=== PATIENT | male | born 1950 | race Caucasian/White ===

== ENCOUNTER 2022-11-21 03:30 | Inpatient (IN) ==
[2022-11-21] MEDS ORDERED: HYDROmorphone INJ 0.5 MG/0.5 ML SYR IV STA (04:19)
[2022-11-21] MEDS ORDERED: ONDANSETRON INJ 2 MG/ML 2 ML VIAL IV STA (04:19)
[2022-11-21] MEDS ORDERED: KETOROLAC 30 MG/ML VIAL IV ONE (04:19)
--- NOTE | 2022-11-21 04:27 | Emergency Department Note ---
Impression & Plan Bilateral pulmonary embolism Admit to the [facility] ED Provider Note NAME: LAWRENCE NAILS AGE: 72 SEX: M ARRIVES VIA: Walk-In INFORMANT: Patient and his ED PROVIDER(S): Renay Mcpherson DO CHIEF COMPLAINT: Left lower chest wall pain PLAN: Disposition: Admit to the [facility] Condition: Guarded MEDICAL DECISION MAKING: This is a 72-year-old male patient who presents to the emergency department with left sided lower rib pain for the past 3 days. The pain became much more severe and woke him from sleep tonight. Patient was treated with IV analgesia here in the emergency department. He did have a faint vesicular rash over the left lower rib cage which was possibly concerning for herpes zoster but he felt the pain was much deeper inside so he went for CT scan of the chest which revealed bilateral pulmonary emboli with a questionable lingular infarct. Patient was started on IV heparin. I discussed the case with the [facility] and they will evaluate for further management. Patient does have risk factors for pulmonary emboli including an extensive tobacco abuse history and previous cancer. Triage Nursing notes reviewed and agree with them. Additional history obtained from the patient's is at the bedside Prior medical records reviewed Vital Signs: reviewed and unremarkable Differential diagnosis: Pneumonia, pleurisy, rib fractures, herpes zoster ER treatment provided: IV Toradol IV Dilaudid IV Zofran IV heparin drip Diagnostics interpreted by me: ECG: Normal sinus rhythm at a rate of [address] segment elevation or signs of ischemia. There is no ectopy. Cardiac Monitoring: Normal sinus rhythm at 80 Laboratory studies: See below Imaging studies: As per radiology CT chest: See report HPI: 72/M arrives for evaluation of left-sided rib pain. Patient has been having discomfort in his left anterior chest wall over the past 3 days. He woke from sleep tonight with severe increase in his pain. Patient describes having a chronic cough from smoking. ROS: See above HPI for pertinent positives & negatives. A total of 10 systems reviewed and were otherwise negative. PAST MEDICAL HISTORY:See Below PAST SURGICAL HISTORY:See Below FAMILY HISTORY:See Below SOCIAL HISTORY:See Below HOME MEDICATIONS:See list ALLERGIES:None VITALS:See Below PHYSICAL EXAMINATION: HEENT: Head - normocephalic and atraumatic. Pupils are equal, round, and reactive to light. Extraocular eye muscles are intact, and sclera are anicteric. Nose - moist nasal mucosa without discharge. Mouth - moist buccal mucosa. Oropharynx is nonerythematous and there is no tonsillar exudate or edema noted. Neck: Supple; no cervical lymphadenopathy or JVD Heart: Regular rate and rhythm. There is a normal S1 and S2 with no murmurs, clicks, or gallops appreciated. Lungs: Clear to auscultation bilaterally with no wheezes, rales, or rhonchi. Abdomen: Soft, obvious anterior abdominal wall hernia that is easily reducible nondistended, with good bowel sounds. There are no palpable pulsatile masses or hepatosplenomegaly. There is no guarding, rigidity, or rebound noted. Extremities: No evidence of cyanosis, clubbing, or edema. There are easily palpable peripheral pulses. Skin: Patient does have tiny vesicular lesions noted over the left lower rib cage anteriorly. Rectal:Soft brown stool which was Hemoccult negative ED COURSE: Times/Reassessments: 340: Patient was evaluated in room A-3. A complete history and physical was performed. An IV lock was initiated and labs are drawn as above. The patient was medicated with IV Toradol, IV Dilaudid and IV Zofran. An order was placed for continuous cardiac monitoring. The patient was in a normal sinus rhythm at a rate of 80. A twelve-lead EKG was obtained as described above. He will go for CT scan of the chest. O2 saturations are stable. Patient's pain was adequately controlled. I reviewed the results of the labs and CT scan with the patient and his . He was started on IV heparin drip after a Rectal exam was performed. It was heme occult negative Renay Mcpherson DO Past Med/Surg History Medical History Barretts esophagus CAD (coronary artery disease) Degenerative disc disease Dyslipidemia GERD (gastroesophageal reflux disease) Hypertension Myocardial Infarction Nausea Osteoarthritis Right knee DJD Surgical History History of cardiac cath History of coronary artery bypass graft x 2 History of esophagogastroduodenoscopy (EGD) (~05/15/20) History of hand surgery History of heart artery stent History of lumbar discectomy History of lumbar surgery History of throat surgery History of tooth extraction History of wisdom tooth extraction Family History Mother Family history of esophageal cancer Other No family history of adverse response to anesthesia Social History Smoking Status: Current every day smoker Tobacco Type: Cigarettes Cigarettes Per Day: 7-8; Second Hand Exposure: No; Hx Alcohol Use: No Hx Substance Use: No Preferred Language: Setswana Communication Ability: Effective [employer] Required: No Beliefs That Will Affect Care: None Current Living Situation: Spouse Feels Safe at Home: Yes Assistive Devices: Cane and Glasses Allergies Allergies Allergy/AdvReac Type Severity Reaction Status Date / Time No Known Drug Allergies Allergy Verified 11/21/22 06:48 Home Meds Home Medications Medication Instructions Recorded Confirmed aspirin 81 mg tablet,delayed 81 mg PO QAM 05/08/20 11/21/22 release dexlansoprazole 60 mg 60 mg PO QAM 07/23/22 11/21/22 capsule,biphase delayed release (Dexilant) diphenhydramine 25 2 tab PO HS PRN Pain 07/23/22 11/21/22 mg-acetaminophen 500 mg tablet (Tylenol PM Extra Strength) hydrochlorothiazide 25 mg tablet 25 mg PO QAM PRN Edema 07/23/22 11/21/22 rosuvastatin 20 mg tablet 20 mg PO HS 07/23/22 11/21/22 famotidine 40 mg tablet 40 mg PO BID 11/21/22 11/21/22 Previous Rx's Medication Instructions Recorded lisinopril 40 mg tablet 40 mg PO QAM #90 tabs 05/21/22 metoprolol succinate 50 mg 50 mg PO BID #180 tabs 05/21/22 tablet,extended release 24 hr (Toprol XL) apixaban 5 mg (74 tabs) tablets in 5 mg PO BID PE #74 ea 11/21/22 a dose pack (Eliquis) oxycodone-acetaminophen 5 mg-325 1 tab PO Q6H PRN pain #14 tabs 11/21/22 mg tablet (Percocet) Results & Data (ED) Vital Signs Vital Signs - 24 hr 11/21/22 03:34 11/21/22 03:30 11/21/22 04:19 Temperature 36.5 C Temperature Source Temporal Artery Scan Pulse Rate 80 65 Pulse Rate [Apical] Pulse Rate from SpO2 Sensor Respiratory Rate 20 20 Respiratory Effort / Characteristics Respiratory Depth Normal Blood Pressure 136/61 Blood Pressure [Right Arm] Blood Pressure Mean 86 Blood Pressure Mean [Right Arm] Pulse Oximetry 95 94 Oxygen Delivery Method Room Air Room Air Room Air Sepsis Recent Fever Within 48 Hours No Sepsis New/Unexplained Change in Mental Status N/A Sepsis Action Taken by Nursing No Action Required 11/21/22 05:30 11/21/22 05:00 11/21/22 05:46 Temperature Temperature Source Pulse Rate 60 63 Pulse Rate [Apical] 52 L Pulse Rate from SpO2 Sensor 61 65 Respiratory Rate 16 14 13 Respiratory Effort / Characteristics Non-Labored Spontaneous Respiratory Depth Normal Blood Pressure 87/66 L Blood Pressure [Right Arm] 98/51 L Blood Pressure Mean 73 Blood Pressure Mean [Right Arm] 66 Pulse Oximetry 95 94 96 Oxygen Delivery Method Room Air Sepsis Recent Fever Within 48 Hours Sepsis New/Unexplained Change in Mental Status Sepsis Action Taken by Nursing 11/21/22 06:00 11/21/22 06:30 11/21/22 06:32 Temperature Temperature Source Pulse Rate 59 L 64 54 L Pulse Rate [Apical] Pulse Rate from SpO2 Sensor 57 L 64 55 L Respiratory Rate 12 16 11 L Respiratory Effort / Characteristics Respiratory Depth Blood Pressure 104/49 L Blood Pressure [Right Arm] Blood Pressure Mean 67 Blood Pressure Mean [Right Arm] Pulse Oximetry 91 88 L 92 Oxygen Delivery Method Sepsis Recent Fever Within 48 Hours Sepsis New/Unexplained Change in Mental Status Sepsis Action Taken by Nursing 11/21/22 06:51 11/21/22 07:00 11/21/22 07:30 Temperature Temperature Source Pulse Rate 49 L 45 L Pulse Rate [Apical] Pulse Rate from SpO2 Sensor 45 L 46 L Respiratory Rate 18 11 L Respiratory Effort / Characteristics Respiratory Depth Blood Pressure 110/61 Blood Pressure [Right Arm] Blood Pressure Mean 77 Blood Pressure Mean [Right Arm] Pulse Oximetry 99 97 Oxygen Delivery Method Sepsis Recent Fever Within 48 Hours Sepsis New/Unexplained Change in Mental Status Sepsis Action Taken by Nursing 11/21/22 08:00 11/21/22 08:00 11/21/22 08:02 Temperature Temperature Source Pulse Rate 82 56 L Pulse Rate [Apical] Pulse Rate from SpO2 Sensor Respiratory Rate 18 17 Respiratory Effort / Characteristics Respiratory Depth Blood Pressure 126/48 L Blood Pressure [Right Arm] Blood Pressure Mean 74 Blood Pressure Mean [Right Arm] Pulse Oximetry Oxygen Delivery Method Sepsis Recent Fever Within 48 Hours Sepsis New/Unexplained Change in Mental Status Sepsis Action Taken by Nursing 11/21/22 08:02 Temperature Temperature Source Pulse Rate Pulse Rate [Apical] Pulse Rate from SpO2 Sensor Respiratory Rate Respiratory Effort / Characteristics Respiratory Depth Blood Pressure 142/55 H Blood Pressure [Right Arm] Blood Pressure Mean 84 Blood Pressure Mean [Right Arm] Pulse Oximetry Oxygen Delivery Method Sepsis Recent Fever Within 48 Hours Sepsis New/Unexplained Change in Mental Status Sepsis Action Taken by Nursing Laboratory Data Result diagrams: 11/21/22 04:26 11/21/22 04:26 Lab Results 11/21/22 11/21/22 11/21/22 Range/Units 04:26 04:26 04:26 WBC 9.53 (4.8-10.8) K/ul RBC 4.60 L (4.63-6.08) M/uL Hgb 15.0 (14.0-18.0) g/dl Hct 43.5 (40.1-51.0) % MCV 94.6 (80.0-100.0) fL MCH 32.6 (25.0-34.0) pg MCHC 34.5 (32.0-36.0) g/dL RDW Std Deviation 44.7 (36.4-46.3) fL RDW Coeff of Tali 12.9 (11.5-14.5) % Plt Count 206 (130-400) K/uL MPV 11.1 (9.4-12.4) fL Immature Gran % (Auto) 0.3 % Neut % (Auto) 64.4 % Lymph % (Auto) 23.5 % [place] % (Auto) 9.7 % Eos % (Auto) 1.9 % Baso % (Auto) 0.2 % Neut # (Auto) 6.14 (1.4-6.5) K/uL Lymph # (Auto) 2.24 (1.2-3.4) K/uL [place] # (Auto) 0.92 H (0.24-0.82) K/uL Eos # (Auto) 0.18 (0-0.50) K/uL Baso # (Auto) 0.02 (0-0.2) K/uL Immature Gran # (Auto) 0.03 H (0.00-0.02) K/uL PT (9.0-12.0) Seconds INR (0.9-1.1) APTT (21.0-31.0) Seconds PTT Ratio Sodium Cancelled 138 Potassium Cancelled 5.5 H Chloride Cancelled 104 Carbon Dioxide Cancelled 24 Anion Gap Cancelled 10 BUN Cancelled 35 H Creatinine Cancelled 1.13 Est Cr Clr Drug Dosing Cancelled 57.2 Est GFR ( Amer) Cancelled 74.8 Est GFR (Non-Af Amer) Cancelled 64.6 BUN/Creatinine Ratio Cancelled 31.0 H Glucose Cancelled 113 H Calcium Cancelled 10.4 H Total Bilirubin Cancelled 0.6 AST Cancelled 17 ALT Cancelled 12 Alkaline Phosphatase Cancelled 71 Total Protein Cancelled 7.8 Albumin Cancelled 4.4 Globulin Cancelled 3.4 Albumin/Globulin Ratio Cancelled 1.3 Lipase Cancelled 19 SARS-CoV-2, RNA, NAAT (NEGATIVE) 11/21/22 11/21/22 11/21/22 Range/Units 04:26 04:26 07:55 WBC (4.8-10.8) K/ul RBC (4.63-6.08) M/uL Hgb (14.0-18.0) g/dl Hct (40.1-51.0) % MCV (80.0-100.0) fL MCH (25.0-34.0) pg MCHC (32.0-36.0) g/dL RDW Std Deviation (36.4-46.3) fL RDW Coeff of Tali (11.5-14.5) % Plt Count (130-400) K/uL MPV (9.4-12.4) fL Immature Gran % (Auto) % Neut % (Auto) % Lymph % (Auto) % [place] % (Auto) % Eos % (Auto) % Baso % (Auto) % Neut # (Auto) (1.4-6.5) K/uL Lymph # (Auto) (1.2-3.4) K/uL [place] # (Auto) (0.24-0.82) K/uL Eos # (Auto) (0-0.50) K/uL Baso # (Auto) (0-0.2) K/uL Immature Gran # (Auto) (0.00-0.02) K/uL PT 11.5 (9.0-12.0) Seconds INR 1.1 (0.9-1.1) APTT 27.1 (21.0-31.0) Seconds PTT Ratio 1.0 Sodium Potassium Chloride Carbon Dioxide Anion Gap BUN Creatinine Est Cr Clr Drug Dosing Est GFR ( Amer) Est GFR (Non-Af Amer) BUN/Creatinine Ratio Glucose Calcium Total Bilirubin AST ALT Alkaline Phosphatase Total Protein Albumin Globulin Albumin/Globulin Ratio Lipase SARS-CoV-2, RNA, NAAT NEGATIVE (NEGATIVE) Administered Medications Discontinued Medications Aspirin (Aspirin 81 Mg Ectab) 81 mg PO QAM [facility] Stop: 12/21/22 11:14 Last Admin: 11/21/22 11:54 Dose: 81 mg Documented By: GRZEGORZ Famotidine (Famotidine 40 Mg Tablet) 40 mg PO BID [facility] Stop: 12/21/22 11:14 Last Admin: 11/21/22 11:54 Dose: 40 mg Documented By: GRZEGORZ Heparin Sodium/Dextrose (Heparin Iv Adult Wt-Based Standard *No* Bolus Protocol) 1 each IV ONE ONE; Protocol Stop: 11/21/22 08:02 Last Admin: 11/21/22 08:40 Dose: 1 each Documented By: LUCY Hydromorphone HCl (Hydromorphone Inj 0.5 Mg/0.5 Ml Syr) 0.5 mg IV NOW STA Stop: 11/21/22 04:20 Last Admin: 11/21/22 04:31 Dose: 0.5 mg Documented By: ZEYAD Sodium Chloride (Nss) 500 mls @ 999 mls/hr IV .Q31M ONE Stop: 11/21/22 07:00 Last Infusion: 11/21/22 07:46 Dose: 0 mls/hr Documented By: Admin: 11/21/22 06:47 Dose: 999 mls/hr Documented By: ZEYAD Heparin Sodium/Dextrose (Heparin Sodium/Dextrose) 25,000 units in 500 mls @ 26 mls/hr IV .[id number] [facility]; Protocol Stop: 12/21/22 08:29 Last Titration: 11/21/22 16:42 Dose: 0 units/hr, 0 mls/hr Documented By: GRZEGORZ Co-signed By: [id number] Admin: 11/21/22 08:40 Dose: 1,300 units/hr, 26 mls/hr Documented By: LUCY Co-signed By: ZAHRAA Ioversol (Optiray 350 100ml) 86 ml IV ONCE ONE Stop: 11/21/22 06:44 Last Admin: 11/21/22 06:43 Dose: 86 ml Documented By: MAGDALENO Ketorolac Tromethamine (Ketorolac 30 Mg/Ml Vial) 30 mg IV NOW ONE Stop: 11/21/22 04:20 Last Admin: 11/21/22 04:31 Dose: 30 mg Documented By: ZYEAD Metoprolol Succinate (Metoprolol Succ 50mg Ext Rel Tab) 50 mg PO BID [facility] Stop: 12/21/22 11:14 Last Admin: 11/21/22 11:54 Dose: 50 mg Documented By: GRZEGORZ Ondansetron HCl (Ondansetron Inj 2 Mg/Ml 2 Ml Vial) 4 mg IV NOW STA Stop: 11/21/22 04:20 Last Admin: 11/21/22 04:31 Dose: 4 mg Documented By: ZEYAD Pantoprazole Sodium (Pantoprazole 40 Mg Tab) 40 mg PO QAM [facility]; Protocol Stop: 12/21/22 11:14 Last Admin: 11/21/22 11:54 Dose: 40 mg Documented By: GRZEGORZ Imaging Data Radiologist's Impression: Chest CT 11/21/22 04:19 CT OF THE CHEST WITH IV CONTRAST CLINICAL HISTORY: Left lower anterior chest wall pain. No known injury. COMPARISON STUDY: Chest radiograph November 21, [address] January 26 11. TECHNIQUE: Following IV administration of 86 mL of Optiray, helical axial images of the chest were obtained. Sagittal and coronal reconstructions were viewed as well as maximal intensity projections on an independent 3-D workstation. Automated exposure control was utilized for the study. A dose lowering technique was utilized adhering to the principles of ALARA. CT DOSE: 254.37 mGy.cm FINDINGS: Multiple acute appearing bilateral pulmonary emboli are noted. These include emboli within the distal left pulmonary artery as well as numerous lobar and segmental pulmonary emboli. No CT evidence for right heart strain. There are median sternotomy wires and postoperative findings from bypass grafting. There is no pericardial effusion. Mild airspace opacity within the lingula is present. There is a trace left pleural effusion. No pneumothorax. Lungs are suboptimally assessed due to respiratory motion. Bulla/cysts within the lungs are again noted. Numerous old bilateral rib fractures are noted. There are no acute rib fractures. Old thoracic spine and sternal fractures are present. Right renal cysts are incidentally noted. IMPRESSION: 1. Numerous bilateral pulmonary emboli, as described above. Findings discussed with Dr. Mcpherson at time of dictation. 2. Mild lingular airspace opacity. Given pulmonary emboli, this favors a pulmonary infarct. Trace left pleural effusion. 3. No acute rib fractures. Multiple old bilateral rib fractures. ACT 112: Negative or not required by law. Electronically signed by: Tomi Wall M.D. 11/21/2022 7:47 AM Chest X-Ray 11/21/22 04:19 XR chest 1V portable CLINICAL HISTORY: Chest pain, nonspecific COMPARISON STUDY: Chest radiograph June 08, 2022. FINDINGS: Median sternotomy wires are noted. Lung volumes are normal. Lungs are clear. There is no pneumothorax or pleural effusion. Cardiac size is normal. Mediastinal contours are normal. There is no evidence for pulmonary edema. S evere osteoarthritis of the right glenohumeral joint. IMPRESSION: No acute cardiopulmonary findings. ACT 112: Negative or not required by law. Electronically signed by: Tomi Wall M.D. 11/21/2022 7:58 AM Discharge Plan Visit Data Chief Complaint: Pain (Generalized) Stated Complaint: L SIDE PAIN ED Provider: Renay Mcpherson Discharge Problem: Bilateral pulmonary embolism Patient Disposition: Admitted As Inpatient Discharge Instructions Interventions: ED Discharge Assessment Last Done: 11/21/22 10:31
[2022-11-21 04:47] LABS: Basophils # (auto) 0.02 K/uL (0-0.2); Basophils % (auto) 0.2 %; Eosinophils # (auto) 0.18 K/uL (0-0.50); Eosinophils % (auto) 1.9 %; Hematocrit (blood only) 43.5 % (40.1-51.0); Immature Granulocytes # (auto) 0.03 K/uL (0.00-0.02); Immature Granulocytes % (auto) 0.3 %; Lymphocytes # (auto) 2.24 K/uL (1.2-3.4); Lymphocytes % (auto) 23.5 %; Mean Corpuscular Hemoglobin 32.6 pg (25.0-34.0); Mean Corpuscular Hgb Conc 34.5 g/dL (32.0-36.0); Mean Corpuscular Volume 94.6 fL (80.0-100.0); Mean Platelet Volume 11.1 fL (9.4-12.4); Monocytes # (auto) 0.92 K/uL (0.24-0.82); Monocytes % (auto) 9.7 %; Neutrophils # (auto) 6.14 K/uL (1.4-6.5); Neutrophils % (auto) 64.4 %; Platelet Count 206 K/uL (130-400); RDW Coefficient of Variation 12.9 % (11.5-14.5); RDW Standard Deviation 44.7 fL (36.4-46.3); White Blood Count 9.53 K/ul (4.8-10.8)
[2022-11-21 06:23] LABS: Albumin Globulin Ratio 1.3 (0.9-2); Albumin Level 4.4 gm/dl (3.4-5.0); Bilirubin,Total 0.6 mg/dl (0.2-1.0); Calcium 10.4 mg/dl (8.5-10.1); Creatinine Clr Calc Pharmacy 57.2 ml/min; Est GFR (African American) 74.8 ml/min; Est GFR (Non-African American) 64.6 ml/min; Globulin 3.4 gm/dl (2.5-4.0); Potassium 5.5 mmol/L (3.5-5.1); Total Protein 7.8 gm/dl (6.0-8.3)
[2022-11-21] MEDS ORDERED: SODIUM CHLORIDE 0.9% 500 ML IV ONE (06:30)
[2022-11-21] MEDS ORDERED: OPTIRAY 350 100ml IV ONE (06:43)
--- NOTE | 2022-11-21 07:50 | CT Scan Report ---
CT OF THE CHEST WITH IV CONTRAST CLINICAL HISTORY: Left lower anterior chest wall pain. No known injury. COMPARISON STUDY: Chest radiograph November 21, [address] January 26, 2011. TECHNIQUE: Following IV administration of 86 mL of Optiray, helical axial images of the chest were o btained. Sagittal and coronal reconstructions were viewed as well as maximal intensity projections o n an independent 3-D workstation. Automated exposure control was utilized for the study. A dose low ering technique was utilized adhering to the principles of ALARA. CT DOSE: 254.37 mGy.cm FINDINGS: Multiple acute appearing bilateral pulmonary emboli are noted. These include emboli within the distal left pulmonary artery as well as numerous lobar and segmental pulmonary emboli. No CT evid ence for right heart strain. There are median sternotomy wires and postoperative findings from bypass grafting. There is no pericardial effusion. Mild airspace opacity within the lingula is present. The re is a trace left pleural effusion. No pneumothorax. Lungs are suboptimally assessed due to respirat ory motion. Bulla/cysts within the lungs are again noted. Numerous old bilateral rib fractures are no salud. There are no acute rib fractures. Old thoracic spine and sternal fractures are present. Right re nal cysts are incidentally noted. IMPRESSION: 1. Numerous bilateral pulmonary emboli, as described above. Findings discussed with Dr. Mcpherson at time of dictation. 2. Mild lingular airspace opacity. Given pulmonary emboli, this favors a pulmonary infarct. Trace lef t pleural effusion. 3. No acute rib fractures. Multiple old bilateral rib fractures. ACT 112: Negative or not required by law. Electronically signed by: Tomi Wall M.D. 11/21/2022 7:47 AM
--- NOTE | 2022-11-21 08:00 | XRay Report ---
XR chest 1V portable CLINICAL HISTORY: Chest pain, nonspecific COMPARISON STUDY: Chest radiograph June 08, 2022. FINDINGS: Median sternotomy wires are noted. Lung volumes are normal. Lungs are clear. There is no pn eumothorax or pleural effusion. Cardiac size is normal. Mediastinal contours are normal. There is no evidence for pulmonary edema. Severe osteoarthritis of the right glenohumeral joint. IMPRESSION: No acute cardiopulmonary findings. ACT 112: Negative or not required by law. Electronically signed by: Tomi Wall M.D. 11/21/2022 7:58 AM
[2022-11-21] MEDS ORDERED: Heparin IV Adult Wt-Based Standard *NO* Bolus Protocol IV ONE (08:01)
[2022-11-21 08:23] LABS: INR 1.1 (0.9-1.1); Prothrombin Time 11.5 Seconds (9.0-12.0)
[2022-11-21] MEDS ORDERED: HEPARIN SODIUM/DEXTROSE 25,000 UNITS/500 ML BAG IV SCH (08:30)
[2022-11-21 08:54] LABS: Partial Thromboplastin Time 27.1 Seconds (21.0-31.0)
[2022-11-21] MEDS ORDERED: MAGNESIUM HYDROXIDE SUSP 30 ML UDC PO PRN (10:47)
[2022-11-21] MEDS ORDERED: ALUMINUM/MAGNESIUM SUSP 30 ML UDC PO PRN (10:47)
[2022-11-21] MEDS ORDERED: POLYETHYLENE (MIRALAX) 17 GM PACK PO PRN (10:47)
[2022-11-21] MEDS ORDERED: ZOLPIDEM TARTRATE 5 MG TAB PO PRN (10:47)
[2022-11-21] MEDS ORDERED: NON-FORMULARY MEDICATION (Diphenhydramine-Acetaminophen [Tylenol Pm Extra Strength] 25-500 PO PRN (10:47)
[2022-11-21] MEDS ORDERED: ONDANSETRON INJ 2 MG/ML 2 ML VIAL IV PRN (10:47)
[2022-11-21] MEDS ORDERED: ACETAMINOPHEN 325 MG TAB PO PRN (10:47)
[2022-11-21] MEDS ORDERED: ASPIRIN 81 MG ECTAB PO SCH (11:15)
[2022-11-21] MEDS ORDERED: FAMOTIDINE 40 MG TABLET PO SCH (11:15)
[2022-11-21] MEDS ORDERED: PANTOprazole 40 MG TAB PO SCH (11:15)
[2022-11-21] MEDS ORDERED: METOPROLOL SUCC 50MG EXT REL TAB PO SCH (11:15)
--- NOTE | 2022-11-21 14:51 | Electrocardiogram Report ---
Test Reason : Blood Pressure : / mmHG Vent. Rate : 067 BPM Atrial Rate : 067 BPM P-R Int : 160 ms QRS Dur : 070 ms QT Int : 382 ms P-R-T Axes : 041 065 070 degrees QTc Int : 403 ms Poor data quality, interpretation may be adversely affected Normal sinus rhythm with sinus arrhythmia Normal ECG When compared with ECG of 08-JUN-2022 09:56, Borderline criteria for Inferior infarct are no longer Present Confirmed by Ben Harrington ([id number]) on 11/21/2022 2:50:53 PM Referred By: REFERRED SELF Confirmed By:Ben Harrington
[2022-11-21 15:16] LABS: Partial Thromboplastin Ratio 2.9
[2022-11-21 15:47] LABS: Partial Thromboplastin Time 80.4 Seconds (21.0-31.0)
--- NOTE | 2022-11-21 16:18 | History & Physical Report ---
Date of Service November 21, 2022 Assessment & Plan (1) Pulmonary embolism: Plan: The patient presented to hospital with pleuritic chest pain and multifocal bilateral segmental pulmonary embolism with no evidence of cardiopulmonary compromise, currently patient is on room air, his sats is 95% even with ambulation despite history of COPD, patient was started on heparin drip at the ER, continue heparin drip for now, monitor patient's vitals and respiratory status for the next 12 hours if patient is medically stable patient can be discharged on oral anticoagulation, patient has multiple risk factors for pulmonary embolism including history of throat cancer, active smoker, sedentary lifestyle, obesity, age, history of precancerous stomach lesion, at least patient needs to be on anticoagulation for 4 to 6 months and possibly indefinitely, I advised the patient to follow-up with PCP for the length of treatment to be followed by her oncologist, for hypercoagulable work-up The patient pleuritic chest pain which failed responded to treatment currently patient is chest pain-free (2) COPD (chronic obstructive pulmonary disease): Plan: No wheezing on exam, he is maintaining sats above 90% in even ambulatory position, (3) Hypertension: Plan: Currently mildly on the low side, continue home regiment good control (4) CAD (coronary artery disease): Plan: Continue aspirin continue metoprolol no chest pain (5) Dyslipidemia: Plan: Continue statin Admission and Anticipated Discharge Date Admission Date: November 21, 2022 History of Present Illness Chief Complaint: Left lateral chest pain Primary Care Provider: MARLENA Christopher The patient is a 72-year-old male with a past medical history significant for throat cancer, precancerous lesion in the lung, active smoker since the age of 12 he still smokes about 2 cigarettes a day, obesity, coronary artery disease status post CABG, hypertension, history of GERD with Lopez esophagus, osteoarthritis who presented to hospital with 3-day history of worsening left lateral chest pain, trigger but the inspiration and cough to the point they interfere with his sleep. Patient did not have any nausea or vomiting diarrhea or chills or fever. Initial work-up at the ER included CT angio of the chest showed multifocal bilateral pulmonary embolism however in segmental branches. Patient is hemodynamically stable, currently he is not hypoxic, currently patient on room air, patient on heparin drip and pain is adequately addressed at this point and patient has pain-free it. Allergies Allergy/AdvReac Type Severity Reaction Status Date / Time No Known Drug Allergies Allergy Verified 11/21/22 06:48 Home Medications Medication Instructions Recorded Confirmed Type aspirin 81 mg tablet,delayed 81 mg PO QAM 05/08/20 11/21/22 History release lisinopril 40 mg tablet 40 mg PO QAM #90 tabs 05/21/22 11/21/22 Rx metoprolol succinate 50 mg 50 mg PO BID #180 tabs 05/21/22 11/21/22 Rx tablet,extended release 24 hr (Toprol XL) dexlansoprazole 60 mg 60 mg PO QAM 07/23/22 11/21/22 History capsule,biphase delayed release (Dexilant) diphenhydramine 25 2 tab PO HS PRN Pain 07/23/22 11/21/22 History mg-acetaminophen 500 mg tablet (Tylenol PM Extra Strength) hydrochlorothiazide 25 mg tablet 25 mg PO QAM PRN Edema 07/23/22 11/21/22 History rosuvastatin 20 mg tablet 20 mg PO HS 07/23/22 11/21/22 History apixaban 5 mg (74 tabs) tablets in 5 mg PO BID #74 ea 11/21/22 Rx a dose pack (Eliquis) famotidine 40 mg tablet 40 mg PO BID 11/21/22 11/21/22 History oxycodone-acetaminophen 5 mg-325 1 tab PO Q6H PRN pain #14 tabs 11/21/22 Rx mg tablet (Percocet) Past Med/Surg History Medical History Barretts esophagus CAD (coronary artery disease) Degenerative disc disease Dyslipidemia GERD (gastroesophageal reflux disease) Hypertension Myocardial Infarction Nausea Osteoarthritis Right knee DJD Surgical History History of cardiac cath History of coronary artery bypass graft x 2 History of esophagogastroduodenoscopy (EGD) (~05/15/20) History of hand surgery History of heart artery stent History of lumbar discectomy History of lumbar surgery History of throat surgery History of tooth extraction History of wisdom tooth extraction Family History Mother Family history of esophageal cancer Other No family history of adverse response to anesthesia Social History Smoking Status: Current every day smoker Tobacco Type: Cigarettes Cigarettes Per Day: 7-8; Second Hand Exposure: No; Hx Alcohol Use: No Hx Substance Use: No Preferred Language: Lebanese 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: No Beliefs That Will Affect Care: None Current Living Situation: Spouse Other Information That Helps Us Care for You: No Feels Safe at Home: Yes Safety Concerns: Feels Safe At This Time Assistive Devices: Cane and Glasses Review of Systems Review of Systems: General: No chills fever or weakness Neck: No pain or tenderness CVS: Positive for left lateral chest pain, no shortness of breath, no cough, no phlegm Lungs: No wheezing, no cough Abdomen: No nausea vomiting diarrhea or pain Extremities: No edema lower leg no tenderness Physical Exam Physical Exam: General: Alert oriented x3 Neck: Supple nontender CVS: Regular rhythm and rhythm no murmur or gallop no regurgitation Lungs: Clear to auscultation no wheezing no chest wall deformity Abdomen: Soft bowel sounds active no palpable organomegaly Extremities: No edema no tenderness good peripheral pulses Results & Data Results & Data ([facility]) Vital Signs (Past 12 Hours) Vital Signs Temp Pulse Pulse Pulse Pulse Pulse Resp 11/21/22 15:40 36.5 C 58 L 18 11/21/22 15:08 71 68 56 L 11/21/22 12:12 36.6 C 57 L 16 11/21/22 10:45 11/21/22 10:32 50 L 16 11/21/22 10:31 11/21/22 10:00 54 L 9 L 11/21/22 10:00 11/21/22 09:30 49 L 16 11/21/22 09:30 11/21/22 09:00 48 L 13 11/21/22 09:00 11/21/22 08:47 11/21/22 08:47 58 L 16 11/21/22 08:30 48 L 14 11/21/22 08:30 11/21/22 08:02 11/21/22 08:02 56 L 17 11/21/22 08:00 82 18 11/21/22 08:00 11/21/22 10:16 36.5 C 57 L 20 11/21/22 07:30 45 L 11 L 11/21/22 07:00 49 L 18 11/21/22 06:51 11/21/22 06:32 54 L 11 L 11/21/22 06:30 64 16 11/21/22 06:00 59 L 12 11/21/22 05:46 63 13 11/21/22 05:00 60 14 11/21/22 05:30 52 L 16 11/21/22 04:19 65 20 Resp Resp Resp BP BP Pulse Ox Pulse Ox 11/21/22 15:40 111/48 L 97 11/21/22 15:08 18 16 16 97 11/21/22 12:12 119/68 93 11/21/22 10:45 11/21/22 10:32 122/63 95 11/21/22 10:31 11/21/22 10:00 11/21/22 10:00 122/63 11/21/22 09:30 11/21/22 09:30 100/62 11/21/22 09:00 11/21/22 09:00 120/55 L 11/21/22 08:47 136/60 11/21/22 08:47 11/21/22 08:30 99 11/21/22 08:30 142/50 H 11/21/22 08:02 142/55 H 11/21/22 08:02 11/21/22 08:00 11/21/22 08:00 126/48 L 11/21/22 10:16 141/58 H 96 11/21/22 07:30 97 11/21/22 07:00 99 11/21/22 06:51 110/61 11/21/22 06:32 92 11/21/22 06:30 88 L 11/21/22 06:00 104/49 L 91 11/21/22 05:46 87/66 L 96 11/21/22 05:00 94 11/21/22 05:30 98/51 L 95 11/21/22 04:19 94 Pulse Ox Pulse Ox O2 Del Method 11/21/22 15:40 Room Air 11/21/22 15:08 97 98 11/21/22 12:12 Room Air 11/21/22 10:45 Room Air 11/21/22 10:32 Room Air 11/21/22 10:31 Room Air 11/21/22 10:00 11/21/22 10:00 11/21/22 09:30 11/21/22 09:30 11/21/22 09:00 11/21/22 09:00 11/21/22 08:47 11/21/22 08:47 11/21/22 08:30 11/21/22 08:30 11/21/22 08:02 11/21/22 08:02 11/21/22 08:00 11/21/22 08:00 11/21/22 10:16 Room Air 11/21/22 07:30 11/21/22 07:00 11/21/22 06:51 11/21/22 06:32 11/21/22 06:30 11/21/22 06:00 11/21/22 05:46 11/21/22 05:00 11/21/22 05:30 Room Air 11/21/22 04:19 Room Air Code Status & VTE Plan Code Status Full code VTE Prophylaxis Plan VTE Prophylaxis will be ordered: Yes PG Care Time/CCT Total # of Minutes Spent Total Time Spent with Patient: Total time spent is greater than 50% in coordination of care (as documented) at patient's floor/unit and/or counseling patient: Coding Level of Care Code INT OBSERVATION CARE 50M LVL 2 Diagnoses Pulmonary embolism I26.99 COPD (chronic obstructive pulmonary disease) J44.9 Hypertension I10 CAD (coronary artery disease) I25.10 Dyslipidemia E78.5
--- NOTE | 2022-11-21 16:53 | Discharge Summary ---
Date of Service November 21, 2022 Admission HPI Per Admitting Provider The patient is a 72-year-old male with a past medical history significant for throat cancer, precancerous lesion in the lung, active smoker since the age of 12 he still smokes about 2 cigarettes a day, obesity, coronary artery disease status post CABG, hypertension, history of GERD with Lopez esophagus, osteoarthritis who presented to hospital with 3-day history of worsening left lateral chest pain, trigger but the inspiration and cough to the point they interfere with his sleep. Patient did not have any nausea or vomiting diarrhea or chills or fever. Initial work-up at the ER included CT angio of the chest showed multifocal bilateral pulmonary embolism however in segmental branches. Patient is hemodynamically stable, currently he is not hypoxic, currently patient on room air, patient on heparin drip and pain is adequately addressed at this point and patient has pain-free it. Principal Diagnosis Segmental and subsegmental bilateral multifocal pulmonary embolism in a high risk patient with no evidence of cardiopulmonary compromise but with pleuritic chest Discharge Exam General: Alert oriented x3 Neck: Supple nontender CVS: Regular rhythm and rhythm no murmur or gallop no regurgitation Lungs: Clear to auscultation no wheezing no chest wall deformity Abdomen: Soft bowel sounds active no palpable organomegaly Extremities: No edema no tenderness good peripheral pulses Discharge Data Allergies Allergy/AdvReac Type Severity Reaction Status Date / Time No Known Drug Allergies Allergy Verified 11/21/22 06:48 Consultations 11/21/22 08:04 ED Decision to Admit Stat Ordered Studies 11/21/22 04:19 CT chest diagnostic w con Urgent Hospital Course (1) Pulmonary embolism: The patient presented to hospital with pleuritic chest pain and multifocal bilateral segmental pulmonary embolism with no evidence of cardiopulmonary co mpromise, currently patient is on room air, his sats is 95% even with ambulation despite history of COPD, patient was started on heparin drip at the ER, monitored the patient's vitals and respiratory status for the next 12 hours the patient is medically stable patient and can be discharged on oral anticoagulation, patient has multiple risk factors for pulmonary embolism including history of throat cancer, active smoker, sedentary lifestyle, obesity, age, history of precancerous stomach lesion, at least patient needs to be on anticoagulation for 4 to 6 months and possibly indefinitely, I advised the patient to follow-up with PCP for the length of treatment to be followed by her oncologist, for hypercoagulable work-up. She was discharged on apixaban (2) COPD (chronic obstructive pulmonary disease): No wheezing on exam, he is maintaining sats above 90% in even ambulatory position, (3) Hypertension: Currently mildly on the low side, continue home regiment good control (4) CAD (coronary artery disease): Continue aspirin continue metoprolol no chest pain (5) Dyslipidemia: Continue statin Total Time Total Time Spent Total Time Spent (In Minutes): 35 Discharge Plan Discharge Items Patient Disposition: Home - Self-Care Reason For Visit: PE Discharge Diagnosis: Pulmonary embolism Activity: Resume your previous activity Lifting: Gradually increase as tolerated Bathing: No limitations Sexual Activity: When tolerated Exercise/Sports: Gradually increase as tolerated Driving/Machine Use: No limitations Weightbearing: Full weightbearing Non-emergency contact: Primary Care Provider and Oncologist Call non-emergency contact if: you have any medication questions and your sy mptoms worsen Follow-up/Referrals: Alisha Carbone CRNP [Primary Care Provider] - Diet: Heart Healthy Addtl Attending Provider Instructions: You need to take the blood thinner (apixaban) at least for 4 to 6 months, please consult your primary care doctor for further work-up or ask your primary doctor to refer you to phys assistant/oncologist to determine the length of treatment that you require which could be indefinite due to multiple risk factors that you have including smoking, having history of cancer, sedentary lifestyle age and obesity Taking blood thinner (apixaban) increase your risk of bleeding, please call your doctor immediately if you develop any new symptoms including evidence of bleeding Pending Studies at Discharge: No Stand-Alone Forms: [employer], Smoking Cessation Medications and DC Order Prescriptions: New Eliquis 5 mg (74 tabs) tablets,dose pack 5 mg PO BID Qty: 74 3RF Rx Instructions: refiles for 5 mg bid for 60 tabs oxycodone-acetaminophen [Percocet] 5-325 mg tablet 1 tab PO Q6H PRN (Reason: pain) Qty: 14 0RF Continued lisinopril 40 mg tablet 40 mg PO QAM Qty: 90 3RF metoprolol succinate [Toprol XL] 50 mg tablet extended release 24 hr 50 mg PO BID Qty: 180 3RF aspirin 81 mg tablet,delayed release (DR/EC) 81 mg PO QAM diphenhydramine-acetaminophen [Tylenol PM Extra Strength] 25-500 mg Tablet 2 tab PO HS PRN (Reason: Pain) hydrochlorothiazide 25 mg tablet 25 mg PO QAM PRN (Reason: Edema) rosuvastatin 20 mg tablet 20 mg PO HS dexlansoprazole [Dexilant] 60 mg capsule,biphase delayed releas 60 mg PO QAM Rx Instructions: TAKE ONE CAPSULE BY MOUTH EVERY DAY famotidine 40 mg tablet 40 mg PO BID Rx Instructions: TAKE ONE TABLET BY MOUTH TWICE A DAY Discharge Orders: Discharge Order (Routine); Ordered 11/21/22 Ordered By: Jah Christian/Other Patient Handouts: Pulmonary Embolism, Anticoagulants, Pain Management Opioids, Taking Opioid Medicines Admission Data Admit Date/Time: 11/21/22 08:12 Attending Provider: Jah Angulo Admit Provider: Jah Angulo Primary Care Provider: Alisha Carbone Other Providers: Mechelle Jones Other Interventions: Discharge Summary Assessment (RN) Last Done: 11/21/22 16:13 Coding Level of Care Code 13879 OBS Care - Discharge Diagnoses Pulmonary embolism I26.99 COPD (chronic obstructive pulmonary disease) J44.9 Hypertension I10 CAD (coronary artery disease) I25.10 Dyslipidemia E78.5
== END 2022-11-21 17:15 | disposition home or self-care (01) | DRG 176 ==
LOC: ED 03:30 → 2S 08:12

== ENCOUNTER 2024-06-22 08:14 | Inpatient (IN) ==
--- NOTE | 2024-06-22 08:47 | Emergency Department Note ---
Impression & Plan Pulmonary embolism, Chest pain, Hypoxia, Acute hypotension, SAWYER (acute kidney injury), DVT (deep venous thrombosis), Elevated troponin I level ED Provider Note NAME: LAWRENCE NAILS AGE: 74 SEX: M : 1950 ARRIVES VIA: Walk-In INFORMANT: Patient, the patient's significant other ED PROVIDER(S): Ben Gr DO CHIEF COMPLAINT: Chest pain HPI: The patient is a 74-year-old male who does have a history of tobacco use as well as pulmonary embolism who presented to the emergency department for an evaluation of chest pain. The patient is also been noticing difficulty eating. He has decreased appetite. He has a history of GERD as well as Lopez's esophagitis. He does not take his blood thinners anymore. He started having discoloration in his upper extremities so he no longer takes his blood thinner. The patient denies having any fever. He had coughing. Symptoms appear to be going on for at least 6 weeks but been worsening over the course of the last several days. The patient has generalized fatigue. He denies having any black or tarry stool. He denies having any exposures to any infectious diseases. ROS: See above HPI for pertinent positives & negatives. A total of 10 systems reviewed and were otherwise negative. PAST MEDICAL HISTORY: See Below PAST SURGICAL HISTORY: See Below FAMILY HISTORY: See Below SOCIAL HISTORY: See Below HOME MEDICATIONS: See Below ALLERGIES: See Below VITALS: See Below PHYSICAL EXAMINATION: GENERAL: The is awake and alert. He is somewhat anxious appearing. EYES: The conjunctivae are clear. The pupils are round and reactive. EARS, NOSE, MOUTH AND THROAT: The nose is without any evidence of any deformity. NECK: The neck is nontender and supple. RESPIRATORY: Diminished breath sounds are noted in the left lung field. There was mild wheezing both upper lung tyson. There is no tachypnea or conversational dyspnea. CARDIOVASCULAR: Regular rate and rhythm noted there no murmurs rubs or gallops normal S1 normal S2. GASTROINTESTINAL: The abdomen is soft. Abdomen is nontender. Large ventral hernia was noted. There is no tenderness over the area. MUSCULOSKELETAL/EXTREMITIES: There is no evidence of gross deformity full range of motion is noted in the hips and shoulders. SKIN: There is no obvious evidence of any rash. There are no petechiae, pallor or cyanosis noted. NEUROLOGIC: Patient is awake alert and oriented x3. MEDICAL DECISION MAKING: The patient is a 74-year-old male who presented to the emergency department for an evaluation of chest pain. Initially I thought he could be experiencing sepsis given his hypotension as well as his hypothermia. He was found to be hypoxic. The patient has a history of pulmonary embolism and stopped taking his oral anticoagulation recently. The patient was found to have signs of right- sided pulmonary embolism. He was started on IV heparin in the emergency department. He was also treated with IV fluids in the emergency department. He was reevaluated multiple times. Troponin was elevated. Creatinine was elevated. I discussed the patient's laboratory and radiographic studies with him and his significant other. I also discussed his condition with the on-call [facility]ist. They have agreed to evaluate the patient in the emergency department for further management and disposition. Triage Nursing notes reviewed. Prior medical records reviewed Vital Signs: reviewed and remarkable for hypoxia and hypotension. Differential diagnosis: Cardiac ischemia, aortic dissection, pulmonary embolism, pneumothorax, pneumonia, pericarditis, myocarditis, esophageal rupture, GERD, cholecystitis, pancreatitis, musculoskeletal, as well as other pathologies. ER treatment provided: See below Diagnostics interpreted by me: ECG: EKG was obtained in the emergency department. My interpretation is normal sinus rhythm at 63 bpm. Inferior Q waves were noted. Low lateral ST depressions were noted with nonspecific T wave abnormalities. This was compared to a tracing from July 21, 2023. No changes were noted. Cardiac Monitoring: An order was placed for continuous cardiac monitoring. The monitor shows a rate of 56 bpm with sinus bradycardia. Laboratory studies: As stated above and show below. Imaging studies: See below. Radiographic imaging was reviewed by myself Consultation(s): I this case with Dr. Jacob who is on-call for the [facility] group. ED COURSE: Procedures: none Critical Care: I have personally spent greater than 45 minutes of critical care time in the direct management of this patient. This includes bedside care, interpretation of diagnostic studies, and testing, discussion with consultants, patient, and family members, and other required patient management activities. This 45 minutes is in excess of all separately billable procedures. 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 CABG x2 in 2013 (CHAUDHRY-LAD, SVG-OM) at [facility] GERD (gastroesophageal reflux disease) (Chronic) Medical History Barretts esophagus Osteoarthritis knees, hips, shoulders Degenerative disc disease Nausea reason for EGD Myocardial Infarction 2007, 2013--follows with Dr. Roe Lumbar stenosis Surgical History History of throat surgery [facility], laser removal lesions in throat History of esophagogastroduodenoscopy (EGD) (~05/15/20) History of hand surgery right hand, pointer/middle/ring finger all repaired (table saw accident) no hardware History of lumbar surgery remove arthritis after discectomy History of lumbar discectomy History of tooth extraction History of wisdom tooth extraction History of heart artery stent 2007 @ [facility] History of cardiac cath 2007 @ [facility] with 1 stent History of coronary artery bypass graft x [address] [facility] [place] [facility] Hx of CABG Family History Mother Family history of esophageal cancer Other No family history of adverse response to anesthesia Social History Smoking Status: Current every day smoker Tobacco Type: Cigarettes Cigarettes Per Day: 7-8; Second Hand Exposure: No; Do You Dip or Chew Tobacco: No; Hx Alcohol Use: No Hx Substance Use: No Preferred Language: Mexican Communication Ability: Effective Surgical Device Sales Representative Required: No Beliefs That Will Affect Care: None Current Living Situation: Spouse Feels Safe at Home: Yes Assistive Devices: Cane and Glasses Allergies Allergies Allergy/AdvReac Type Severity Reaction Status Date / Time No Known Drug Allergies Allergy NKDA Verified 06/17/23 13:05 Home Meds Home Medications Medication Instructions Recorded Confirmed aspirin 81 mg tablet,delayed 81 mg PO QAM 05/08/20 06/22/24 release Previous Rx's Medication Instructions Recorded rosuvastatin 40 mg tablet 40 mg PO DAILY #90 tabs 06/17/23 famotidine 40 mg tablet 40 mg PO BID #180 tabs 12/16/23 dexlansoprazole 60 mg 60 mg PO DAILY #90 caps 02/14/24 capsule,biphase delayed release lisinopril 40 mg tablet 40 mg PO QAM #90 tabs 06/15/24 metoprolol succinate 50 mg 50 mg PO BID #180 tabs 06/15/24 tablet,extended release 24 hr (Toprol XL) Results & Data (ED) Vital Signs Vital Signs - 24 hr 06/22/24 08:17 06/22/24 08:20 06/22/24 08:20 Temperature 36 C L Temperature Source Temporal Artery Scan Pulse Rate 115 H Pulse Rate from SpO2 Sensor Pulse Rhythm Respiratory Rate 18 Respiratory Effort / Characteristics Non-Labored Spontaneous SOB on Exertion Respiratory Depth Normal Shallow Respiratory Pattern Regular Blood Pressure 84/51 L Blood Pressure Mean 62 Pulse Oximetry 94 86 L Oxygen Delivery Method Room Air Room Air Room Air Oxygen Flow Rate Sepsis Recent Fever Within 48 Hours No Sepsis New/Unexplained Change in Mental Status N/A Sepsis Action Taken by Nursing Physician Notified 06/22/24 08:36 06/22/24 08:36 06/22/24 08:39 Temperature Temperature Source Pulse Rate 60 66 Pulse Rate from SpO2 Sensor 60 Pulse Rhythm Regular Respiratory Rate 22 24 Respiratory Effort / Characteristics Respiratory Depth Respiratory Pattern Blood Pressure 124/60 Blood Pressure Mean 95 Pulse Oximetry 94 97 Oxygen Delivery Method Nasal Cannula Nasal Cannula Oxygen Flow Rate 2 2 Sepsis Recent Fever Within 48 Hours Sepsis New/Unexplained Change in Mental Status Sepsis Action Taken by Nursing 06/22/24 08:39 06/22/24 08:42 06/22/24 08:45 Temperature Temperature Source Pulse Rate 59 L 56 L Pulse Rate from SpO2 Sensor 60 58 L Pulse Rhythm Respiratory Rate 20 22 Respiratory Effort / Characteristics Respiratory Depth Respiratory Pattern Blood Pressure 120/59 L Blood Pressure Mean 88 Pulse Oximetry 100 98 Oxygen Delivery Method Nasal Cannula Nasal Cannula Oxygen Flow Rate 2 2 Sepsis Recent Fever Within 48 Hours Sepsis New/Unexplained Change in Mental Status Sepsis Action Taken by Nursing 06/22/24 08:51 06/22/24 08:58 06/22/24 09:00 Temperature Temperature Source Pulse Rate 57 L 72 58 L Pulse Rate from SpO2 Sensor 56 L 58 L Pulse Rhythm Respiratory Rate 19 18 Respiratory Effort / Characteristics Respiratory Depth Respiratory Pattern Blood Pressure Blood Pressure Mean Pulse Oximetry 100 99 Oxygen Delivery Method Oxygen Flow Rate Sepsis Recent Fever Within 48 Hours Sepsis New/Unexplained Change in Mental Status Sepsis Action Taken by Nursing 06/22/24 09:00 06/22/24 09:03 06/22/24 09:09 Temperature Temperature Source Pulse Rate 55 L 56 L Pulse Rate from SpO2 Sensor 56 L 56 L Pulse Rhythm Respiratory Rate 17 20 Respiratory Effort / Characteristics Respiratory Depth Respiratory Pattern Blood Pressure 113/62 Blood Pressure Mean 84 Pulse Oximetry 100 100 Oxygen Delivery Method Oxygen Flow Rate Sepsis Recent Fever Within 48 Hours Sepsis New/Unexplained Change in Mental Status Sepsis Action Taken by Nursing 06/22/24 09:15 06/22/24 10:15 06/22/24 10:27 Temperature Temperature Source Pulse Rate 66 54 L Pulse Rate from SpO2 Sensor 54 L Pulse Rhythm Respiratory Rate 22 16 Respiratory Effort / Characteristics Respiratory Depth Respiratory Pattern Blood Pressure 119/59 L 135/61 132/51 L Blood Pressure Mean 89 85 78 Pulse Oximetry 96 100 Oxygen Delivery Method Oxygen Flow Rate Sepsis Recent Fever Within 48 Hours Sepsis New/Unexplained Change in Mental Status Sepsis Action Taken by Nursing 06/22/24 10:48 06/22/24 11:00 06/22/24 11:12 Temperature Temperature Source Pulse Rate 54 L 55 L 53 L Pulse Rate from SpO2 Sensor 54 L 59 L 52 L Pulse Rhythm Respiratory Rate 17 17 14 Respiratory Effort / Characteristics Respiratory Depth Respiratory Pattern Blood Pressure 132/54 L 120/72 139/59 L Blood Pressure Mean 80 89 85 Pulse Oximetry 100 97 100 Oxygen Delivery Method Oxygen Flow Rate Sepsis Recent Fever Within 48 Hours Sepsis New/Unexplained Change in Mental Status Sepsis Action Taken by Long Term Medications Current Medication List: was personally reviewed by me Laboratory Data Attestation: I reviewed the patient's lab results. 06/22/24 08:30 06/22/24 08:30 Lab Results 06/22/24 06/22/24 06/22/24 Range/Units 08:30 09:00 09:25 WBC 5.60 (4.8-10.8) K/ul RBC 4.28 L (4.70-6.10) M/uL Hgb 13.8 L (14.0-18.0) g/dl Hct 40.3 L (42.0-52.0) % MCV 94.2 (80.0-100.0) fL MCH 32.2 (25.0-34.0) pg MCHC 34.2 (32.0-36.0) g/dL RDW Std Deviation 43.5 (36.4-46.3) fL RDW Coeff of Tali 12.6 (11.5-14.5) % Plt Count 255 (130-400) K/uL MPV 10.9 (9.4-12.4) fL Immature Gran % (Auto) 0.2 % Neut % (Auto) 52.6 % Lymph % (Auto) 34.8 % Gulf % (Auto) 9.8 % Eos % (Auto) 2.1 % Baso % (Auto) 0.5 % Neut # (Auto) 2.94 (1.40-6.50) K/uL Lymph # (Auto) 1.95 (1.20-3.40) K/uL Gulf # (Auto) 0.55 (0.11-0.59) K/uL Eos # (Auto) 0.12 (0.00-0.50) K/uL Baso # (Auto) 0.03 (0.00-0.20) K/uL Immature Gran # (Auto) 0.01 (0.01-0.20) K/uL PT 11.1 (9.0-12.0) Seconds INR 1.0 (0.9-1.1) APTT 24 (21-31) Seconds PTT Ratio 0.9 D-Dimer 4350 H* (0-500) ug/L FEU VBG pH 7.32 L (7.36-7.41) VBG pCO2 50 (38-50) mmHg VBG pO2 23 mmHg VBG HCO3 26 mmol/L VBG O2 Saturation < 60.0 % VBG Base Excess -0.9 mEq/L Sodium 138 (136-145) mmol/L Potassium 3.6 (3.5-5.1) mmol/L Chloride 103 (98-107) mmol/L Carbon Dioxide 26 (21-32) mmol/L Anion Gap 9 (3-11) BUN 22 (6-23) mg/dl Creatinine 1.72 H (0.6-1.4) mg/dl Est Cr Clr Drug Dosing 36.5 ml/min Est GFR ( Amer) 44.4 ml/min Est GFR (Non-Af Amer) 38.3 ml/min BUN/Creatinine Ratio 12.8 (10-20) Glucose 99 (70-99(Fasting)) mg/dl Lactate 1.1 (0.4-2.0) mmol/L Calcium 10.3 (8.6-10.3) mg/dl Magnesium 2.1 (1.7-2.4) mg/dl Total Bilirubin 0.5 (0.2-1.0) mg/dl Direct Bilirubin 0.1 (0-0.2) mg/dl AST 23 (13-39) U/L ALT 17 (7-52) U/L Alkaline Phosphatase 67 (34-104) U/L Troponin I High Sens 65.1 H* (0-20) pg/ml Total Protein 7.2 (6.0-8.3) gm/dl Albumin 4.2 (3.4-5.0) gm/dl Procalcitonin 0.07 (0-0.5) ng/ml Adenovirus (PCR) Not Detected (NotDetected) B. pertussis DNA (PCR) Not Detected (NotDetected) B.parapertussis DNA PCR Not Detected (NotDetected) C. pneumoniae DNA (PCR) Not Detected (NotDetected) Coronavirus OC43 (PCR) Not Detected (NotDetected) Coronavirus HKU1 (PCR) Not Detected (NotDetected) Coronavirus 229E (PCR) Not Detected (NotDetected) SARS-CoV-2 (PCR) Not Detected (NotDetected) Coronavirus NL63 (PCR) Not Detected (NotDetected) Human Metapneumovir PCR Not Detected (NotDetected) Influenza Type A (PCR) Not Detected (NotDetected) Influenza Type B (PCR) Not Detected (NotDetected) M. pneumoniae (PCR) Not Detected (NotDetected) Parainfluenza 1 (PCR) Not Detected (NotDetected) Parainfluenza 2 (PCR) Not Detected (NotDetected) Parainfluenza 3 (PCR) Not Detected (NotDetected) Parainfluenza 4 (PCR) Not Detected (NotDetected) RSV (PCR) Not Detected (NotDetected) Entero/Rhino (PCR) Not Detected (NotDetected) 06/22/24 Range/Units 10:41 WBC (4.8-10.8) K/ul RBC (4.70-6.10) M/uL Hgb (14.0-18.0) g/dl Hct (42.0-52.0) % MCV (80.0-100.0) fL MCH (25.0-34.0) pg MCHC (32.0-36.0) g/dL RDW Std Deviation (36.4-46.3) fL RDW Coeff of Tali (11.5-14.5) % Plt Count (130-400) K/uL MPV (9.4-12.4) fL Immature Gran % (Auto) % Neut % (Auto) % Lymph % (Auto) % Gulf % (Auto) % Eos % (Auto) % Baso % (Auto) % Neut # (Auto) (1.40-6.50) K/uL Lymph # (Auto) (1.20-3.40) K/uL Gulf # (Auto) (0.11-0.59) K/uL Eos # (Auto) (0.00-0.50) K/uL Baso # (Auto) (0.00-0.20) K/uL Immature Gran # (Auto) (0.01-0.20) K/uL PT (9.0-12.0) Seconds INR (0.9-1.1) APTT (21-31) Seconds PTT Ratio D-Dimer (0-500) ug/L FEU VBG pH (7.36-7.41) VBG pCO2 (38-50) mmHg VBG pO2 mmHg VBG HCO3 mmol/L VBG O2 Saturation % VBG Base Excess mEq/L Sodium (136-145) mmol/L Potassium (3.5-5.1) mmol/L Chloride (98-107) mmol/L Carbon Dioxide (21-32) mmol/L Anion Gap (3-11) BUN (6-23) mg/dl Creatinine (0.6-1.4) mg/dl Est Cr Clr Drug Dosing ml/min Est GFR ( Amer) ml/min Est GFR (Non-Af Amer) ml/min BUN/Creatinine Ratio (10-20) Glucose (70-99(Fasting)) mg/dl Lactate (0.4-2.0) mmol/L Calcium (8.6-10.3) mg/dl Magnesium (1.7-2.4) mg/dl Total Bilirubin (0.2-1.0) mg/dl Direct Bilirubin (0-0.2) mg/dl AST (13-39) U/L ALT (7-52) U/L Alkaline Phosphatase (34-104) U/L Troponin I High Sens 52.0 H* D (0-20) pg/ml Total Protein (6.0-8.3) gm/dl Albumin (3.4-5.0) gm/dl Procalcitonin (0-0.5) ng/ml Adenovirus (PCR) (NotDetected) B. pertussis DNA (PCR) (NotDetected) B.parapertussis DNA PCR (NotDetected) C. pneumoniae DNA (PCR) (NotDetected) Coronavirus OC43 (PCR) (NotDetected) Coronavirus HKU1 (PCR) (NotDetected) Coronavirus 229E (PCR) (NotDetected) SARS-CoV-2 (PCR) (NotDetected) Coronavirus NL63 (PCR) (NotDetected) Human Metapneumovir PCR (NotDetected) Influenza Type A (PCR) (NotDetected) Influenza Type B (PCR) (NotDetected) M. pneumoniae (PCR) (NotDetected) Parainfluenza 1 (PCR) (NotDetected) Parainfluenza 2 (PCR) (NotDetected) Parainfluenza 3 (PCR) (NotDetected) Parainfluenza 4 (PCR) (NotDetected) RSV (PCR) (NotDetected) Entero/Rhino (PCR) (NotDetected) Administered Medications Heparin Sodium/Dextrose (Heparin Sodium/Dextrose) 25,000 units in 500 mls @ 25 mls/hr IV .Q20H [facility]; Protocol Stop: 07/22/24 10:29 Last Admin: 06/22/24 11:33 Dose: 1,250 units/hr, 25 mls/hr Documented By: RADHA Co-signed By: CC Parenteral Electrolytes (Plasma-Lyte A Ph 7.4) 1,000 mls @ 80 mls/hr IV .[id number] TRANG Stop: 06/23/24 12:29 Last Admin: 06/22/24 12:31 Dose: 80 mls/hr Documented By: VELIA Discontinued Medications Albuterol (Albut/Ipratrop 3mg/0.5mg Neb 3 Ml Vial) 3 ml NEB NOW STA; Protocol Stop: 06/22/24 08:45 Last Admin: 06/22/24 09:03 Dose: 3 ml Documented By: ARPITA Heparin Sodium (Porcine) (Heparin Sod (Porcine) 1000 Unit/Ml) 6,000 units IV NOW ONE Stop: 06/22/24 11:16 Last Admin: 06/22/24 11:33 Dose: 6,000 units Documented By: RADHA Co-signed By: SABRA Sodium Chloride (Nss) 500 mls @ 999 mls/hr IV .Q31M ONE Stop: 06/22/24 09:09 Last Infusion: 06/22/24 12:44 Dose: Infused Documented By: Admin: 06/22/24 09:03 Dose: 999 mls/hr Documented By: ARPITA Sodium Chloride (Nss) 1,000 mls @ 999 mls/hr IV .Q1H1M ONE Stop: 06/22/24 10:20 Last Infusion: 06/22/24 12:44 Dose: Infused Documented By: Admin: 06/22/24 09:32 Dose: 999 mls/hr Documented By: RADHA Ioversol (Optiray 320 125ml) 112 ml IV ONCE ONE Stop: 06/22/24 09:56 Last Admin: 06/22/24 09:55 Dose: 112 ml Documented By: KERI Polyethylene Glycol (Polyethylene (Miralax) 17 Gm Pack) 17 gm PO NOW ONE Stop: 06/22/24 11:29 Last Admin: 06/22/24 12:30 Dose: Not Given Documented By: VELIA Imaging Data Attestation: I personally reviewed and interpreted this imaging study as follows: My Impression: 1 view chest x-ray was obtained in the emergency department. My interpretation is no free air or definite infiltrate, final report below. CT of the chest was obtained in the emergency department. My interpretation is right sided pulmonary embolism noted, there is no free air, final report pending. CT of the abdomen and pelvis was obtained in the emergency department. My interpretation is no free air or signs of bowel obstruction, final report pending. Radiologist's Impression: Chest X-Ray 06/22/24 08:39 XR chest 1V portable HISTORY: Sepsis COMPARISON: Chest 07/21/2023. FINDINGS: No pneumothorax. No pleural effusions. The lungs are clear. The heart is normal in size. Poststernotomy changes are noted. Degenerative changes within the shoulders. Old left-sided rib fractures. IMPRESSION: No acute process. ACT 112: Negative or not required by law. Electronically signed by: Zackary Hlolis M.D. 06/22/2024 9:20 AM Abdomen/Pelvis CT 06/22/24 09:[address] WITH IV CONTRAST CT DOSE: HISTORY: Upper abdominal pain. TECHNIQUE: Multiaxial CT images of the abdomen and pelvis were performed following the use of intravenous contrast. A dose lowering technique was utilized adhering to the principles of ALARA. COMPARISON STUDY: Abdomen and pelvis CT 03/21/2020. FINDINGS: The lung bases will be reported on the same day chest CTA. Emphysema is again noted. No pneumoperitoneum. No pneumatosis. There is an old anterior wedge-shaped compression deformity at T11. Posterior decompression within the lower lumbar spine. Old right-sided rib fractures. There is a large midline supraumbilical hernia containing multiple loops of small bowel. Mild fat stranding noted at the hernia neck. This is likely due to the chronic hernia. This is similar to the prior study. The hernia sac measures 11.8 cm. This has slightly increased in size in the interval. There is a near occlusive left common femoral and left superficial femoral deep vein thrombosis. The bilateral superficial femoral arteries are occluded which is likely chronic. The liver, gallbladder, pancreas, spleen, and adrenal glands are unremarkable. No hydronephrosis. There is a 16 mm exophytic hypodense lesion within the right kidney. This previous measured 3.2 cm. Therefore, this favors a hyperdense cyst. Additional right renal hypodense lesions also favor cysts. The main portal vein is patent. There is an ectatic abdominal aorta measuring up to 2.6 cm in diameter. Moderate calcified plaque within the aorta and iliac arteries. Mild bladder wall thickening is likely due to chronic outlet obstruction from the enlarged prostate gland. No bowel wall thickening or obstruction. A few colonic diverticula. No evidence for acute diverticulitis. Normal appendix. IMPRESSION: 1. Slight increase in size in the large midline supraumbilical hernia containing multiple loops of small bowel. No evidence for bowel obstruction. 2. Near occlusive deep vein thrombosis within the left common femoral and superficial femoral veins. 3. Colonic diverticulosis. No evidence for acute diverticulitis. 4. Additional findings as described above. ACT 112: Negative or not required by law. Electronically signed by: Zackary Hollis M.D. 06/22/2024 10:59 AM Chest CTA 06/22/24 09:24 CT angio chest PE protocol CT DOSE: 1945.17 mGy.cm HISTORY: 74 years-old Male with PE. Acute shortness of breath TECHNIQUE: Multiple CTA images of the chest were obtained after the intravenous administration of 112 ml Optiray. Coronal and sagittal MIPS were obtained from the axial data set and were submitted for review. All measurements were obtained according to NASCET criteria. A dose lowering technique was utilized adhering to the principles of ALARA. COMPARISON: CT abdomen and pelvis of same day, CTA chest 07/21/2023 FINDINGS: CTA: Heart is upper limits of normal in size without pericardial effusion. Sternotomy with prior CABG. Moderate coronary artery calcifications. No thoracic aortic aneurysm. Descending thoracic aortic tortuosity. Prominent calcified plaque in the proximal superior mesenteric artery causes high-grade stenosis. Lobar, segmental and subsegmental pulmonary emboli noted within the right lung. No evidence of right heart strain. CT CHEST: Unremarkable thyroid. There is no lymphadenopathy. Moderate pulmonary emphysema. No pneumothorax or pleural effusion. Bronchial wall thickening suggestive of bronchitis. No suspicious pulmonary nodules or masses. No acute upper abdominal abnormality. Exophytic probable cyst of the superior pole right kidney, 1.7 cm. No acute fracture. Degenerative changes of the shoulders and spine. The osseous structures appear intact. IMPRESSION: 1. Right-sided pulmonary emboli without evidence of right heart strain, pleural effusion or airspace consolidation. 2. Emphysema with probable bronchitis. ACT 112: Negative or not required by law. The above report was generated using voice recognition software. It may contain grammatical, syntax or spelling errors. Electronically signed by: Kt Gallwoay M.D. 06/22/2024 11:00 AM Discharge Plan Visit Data Chief Complaint: Chest Pain Stated Complaint: CHEST PAIN ON R, NAGGING COUGH, BACK PAIN ED Provider: Ben Gr Discharge Problem: Pulmonary embolism, Chest pain, Hypoxia, Acute hypotension, SAWYER (acute kidney injury), DVT (deep venous thrombosis), Elevated troponin I level Patient Disposition: Being Evaluated by Hospitalist Discharge Instructions Interventions: ED Discharge Assessment Last Done: 06/22/24 13:43 Discharge Problem: Pulmonary embolism Qualifiers: Pulmonary embolism type: unspecified Chronicity: acute Acute cor pulmonale presence: unspecified Qualified Code(s): I26.99 - Other pulmonary embolism without acute cor pulmonale Chest pain Qualifiers: Chest pain type: unspecified Qualified Code(s): R07.9 - Chest pain, unspecified DVT (deep venous thrombosis) Qualifiers: DVT location: lower extremity Affected thrombotic vein of extremity: femoral C hronicity: acute Laterality: left Qualified Code(s): I82.412 - Acute embolism and thrombosis of left femoral vein
[2024-06-22 09:00] LABS: Basophils # (auto) 0.03 K/uL (0.00-0.20); Basophils % (auto) 0.5 %; Eosinophils # (auto) 0.12 K/uL (0.00-0.50); Eosinophils % (auto) 2.1 %; Hematocrit (blood only) 40.3 % (42.0-52.0); Hemoglobin 13.8 g/dl (14.0-18.0); Immature Granulocytes # (auto) 0.01 K/uL (0.01-0.20); Immature Granulocytes % (auto) 0.2 %; Lymphocytes # (auto) 1.95 K/uL (1.20-3.40); Lymphocytes % (auto) 34.8 %; Mean Corpuscular Hemoglobin 32.2 pg (25.0-34.0); Mean Corpuscular Hgb Conc 34.2 g/dL (32.0-36.0); Mean Corpuscular Volume 94.2 fL (80.0-100.0); Mean Platelet Volume 10.9 fL (9.4-12.4); Monocytes # (auto) 0.55 K/uL (0.11-0.59); Monocytes % (auto) 9.8 %; Neutrophils # (auto) 2.94 K/uL (1.40-6.50); Neutrophils % (auto) 52.6 %; Platelet Count 255 K/uL (130-400); RDW Coefficient of Variation 12.6 % (11.5-14.5); RDW Standard Deviation 43.5 fL (36.4-46.3); Red Blood Count 4.28 M/uL (4.70-6.10)
[2024-06-22] MEDS: SODIUM CHLORIDE 0.9% 500 ML IV ONE (09:03)
[2024-06-22] MEDS: ALBUT/IPRATROP 3MG/0.5MG NEB 3 ML VIAL NEB STA (09:03)
[2024-06-22 09:12] LABS: Albumin Level 4.2 gm/dl (3.4-5.0); BUN Creatinine Ratio 12.8 (10-20); Bilirubin Direct 0.1 mg/dl (0-0.2); Bilirubin,Total 0.5 mg/dl (0.2-1.0); Calcium 10.3 mg/dl (8.6-10.3); Creatinine Clr Calc Pharmacy 36.5 ml/min; Est GFR (African American) 44.4 ml/min; Est GFR (Non-African American) 38.3 ml/min; Magnesium 2.1 mg/dl (1.7-2.4); Potassium 3.6 mmol/L (3.5-5.1); Total Protein 7.2 gm/dl (6.0-8.3)
[2024-06-22 09:21] LABS: Troponin I High Sensitivity 65.1 pg/ml (0-20)
--- NOTE | 2024-06-22 09:21 | XRay Report ---
XR chest 1V portable HISTORY: Sepsis COMPARISON: Chest 07/21/2023. FINDINGS: No pneumothorax. No pleural effusions. The lungs are clear. The heart is normal in size. Po ststernotomy changes are noted. Degenerative changes within the shoulders. Old left-sided rib fractur es. IMPRESSION: No acute process. ACT 112: Negative or not required by law. Electronically signed by: Zackary Hollis M.D. 06/22/2024 9:20 AM
[2024-06-22] MEDS: SODIUM CHLORIDE 0.9% 1,000 ML IV ONE (09:32)
[2024-06-22 09:40] LABS: Partial Thromboplastin Ratio 0.9; Partial Thromboplastin Time 24 Seconds (21-31); Prothrombin Time 11.1 Seconds (9.0-12.0)
[2024-06-22 09:43] LABS: D Dimer 4350 ug/L FEU (0-500)
[2024-06-22] MEDS: OPTIRAY 320 125ml IV ONE (09:55)
[2024-06-22 09:56] LABS: Base Excess VBG -0.9 mEq/L; HCO3 VBG 26 mmol/L; Oxygen Saturation VBG < 60.0 %; PCO2 VBG 50 mmHg (38-50); PO2 VBG 23 mmHg; pH VBG 7.32 (7.36-7.41)
[2024-06-22] MEDS ORDERED: Heparin IV Adult Wt-Based Standard w/ INITIAL Bolus Protocol IV STA (10:07)
[2024-06-22] MEDS ORDERED: HEPARIN SOD (PORCINE) 1000 UNIT/ML IV ONE (10:22)
[2024-06-22 10:26] LABS: Adenovirus PCR Not Detected (NotDetected); Bordetella parapertussis PCR Not Detected (NotDetected); Bordetella pertussis PCR Not Detected (NotDetected); Chlamydia pneumoniae PCR Not Detected (NotDetected); Coronavirus 229E PCR Not Detected (NotDetected); Coronavirus CoV-2 (COVID19)PCR Not Detected (NotDetected); Coronavirus HKU1 PCR Not Detected (NotDetected); Coronavirus NL63 PCR Not Detected (NotDetected); Coronavirus OC43PCR Not Detected (NotDetected); Human Metapneumovirus PCR Not Detected (NotDetected); Influenza A PCR Not Detected (NotDetected); Influenza B PCR Not Detected (NotDetected); Mycoplasma pneumoniae PCR Not Detected (NotDetected); Parainfluenza Virus 1 PCR Not Detected (NotDetected); Parainfluenza Virus 2 PCR Not Detected (NotDetected); Parainfluenza Virus 3 PCR Not Detected (NotDetected); Parainfluenza Virus 4 PCR Not Detected (NotDetected); Respiratory Syncytial VirusPCR Not Detected (NotDetected); Rhinovirus/Enterovirus PCR Not Detected (NotDetected)
--- NOTE | 2024-06-22 10:36 | History & Physical Report ---
Date of Service June 22, 2024 Assessment & Plan (1) Pulmonary embolism: Plan: Worsening SOB x 2 weeks, productive cough x 4-5months Stopped taking eliquis several months ago D-dimer elevated on arrival Chest CTA revealed right-sided pulmonary emboli without evidence of right heart strain Patient was initially hypotensive at 84/51 on arrival; however, he quickly rebounded within 15 minutes is currently normotensive; ?Volume contraction v. BP cuff error v. massive PE No saddle PE noted on imaging Will defer thrombolytic therapy at this time, and continue to monitor BP Echocardiogram ordered, pending to evaluate for right ventricular dilation Heparin IV with bolus Discussed with patient that he will likely require lifelong anticoagulation upon discharge A.m. CBC, BMP, PTT, PT/INR (2) DVT (deep venous thrombosis): Plan: A/P CT noted a near occlusive DVT within the left common femoral and superficial femoral veins If failure of anticoagulation therapy with IV heparin, would consider cerulea dolens differential (which may require thrombolysis, or catheter-directed therapy) Neither are indicated at this time and we will continue to monitor Neurochecks q4h for LLE Activity: Bedrest (3) Lopez's esophagus with high grade dysplasia: Plan: Continue dexlansoprazole and famotidine Patient reports he has been eating less recently Recommend following up with GI outpatient for endoscopy (4) Tobacco use: Plan: Patient is a current everyday tobacco cigarette smoker; 1 pack/week Was previously on 1 PPD; 62-year history Continue to encourage smoking cessation (5) SAWYER (acute kidney injury): Plan: BUN 26, creatinine 1.72 (baseline 0.72), EGFR 38.3 Avoid nephrotoxic agents for possible Fluid resuscitation with Plasma-Lyte at 80mL/hr Recheck a.m. BMP (6) CAD (coronary artery disease): Plan: PCI RCA in 2007 CABG x 2 in 2014 Continue aspirin (7) Constipation: Plan: MiraLAX daily (8) Dyslipidemia: (9) Hypertension: Plan Disposition: Admit to PCU telemetry DNR/DNI Regular diet VTE PPx: Heparin IV History of Present Illness Chief Complaint: Chest pain, SOB Primary Care Provider: Macy Gray MD León is a 74-year-old male with PMH of CAD, GERD, dyslipidemia, HTN, pulmonary embolism (on Eliquis), and COPD. He presented on 06/22 for worsening cough x 4 to 5 months months, and worsening SOB at rest. Patient reports that SOB is both at rest and with exertion, and patient's in the room reports he has been "wheezing" when sleeping. SOB is not worse when he lies flat on his back. He denies pleuritic chest pain, but does report that this can exacerbate his coughing when he takes deep breaths. Patient does have history of a pulmonary embolism that occurred a year and a half ago in November 2022. Patient is unsure what caused it, but believed he injured his foot, which led to a DVT/blood clot. Patient was previously on Eliquis, but stopped taking it 4 to 5 months ago after he developed bruising on his arms without injury/trauma to the arms. Patient endorses productive cough (clear, but slightly cloudy at times); no hemoptysis. He is a current everyday tobacco cigarette smoker; 1 pack/week. 62-year smoking history and was previously on 1 PPD. He denies recent alcohol use, but does endorse daily alcohol use that he stopped 3 to 4 weeks ago; but drinks 2-3 white Russians per day. Patient denies cigars, and chewing tobacco. No sick contacts. No supplemental oxygen at home. No CPAP at night. No recent injuries to the chest wall or legs. Additional PMH: patient has been screened in the past for esophageal/stomach cancer and is due for another endoscopy; he recently reports that he has had a loss of appetite and has not been eating as well. Patient is mildly bradycardic at 47 bpm admission; BP 119/62; SpO2 100% on 2 LNC. ED Course: Heparin IV w/ bolus NSS 1500mL Albuterol 3mL ROS: Patient endorses fatigue, generalized weakness, SOB at rest and with exertion, productive cough (clear), and loss of appetite. Patient denies fever, chills, night-sweats, dizziness, lightheadedness, ALBERTO, chest pain, pleuritic CP, hemoptysis, abdominal pain, N/V/D, or recent injuries/swelling/erythema in the legs. Allergies Allergy/AdvReac Type Severity Reaction Status Date / Time No Known Drug Allergies Allergy NKDA Verified 06/17/23 13:05 Home Medications Medication Instructions Recorded Confirmed Type aspirin 81 mg tablet,delayed 81 mg PO QAM 05/08/20 06/22/24 History release rosuvastatin 40 mg tablet 40 mg PO DAILY #90 tabs 06/17/23 06/22/24 Rx famotidine 40 mg tablet 40 mg PO BID #180 tabs 12/16/23 06/22/24 Rx dexlansoprazole 60 mg 60 mg PO DAILY #90 caps 02/14/24 06/22/24 Rx capsule,biphase delayed release lisinopril 40 mg tablet 40 mg PO QAM #90 tabs 06/15/24 06/22/24 Rx metoprolol succinate 50 mg 50 mg PO BID #180 tabs 06/15/24 06/22/24 Rx tablet,extended release 24 hr (Toprol XL) Past Med/Surg History Problem List (Updated 06/22/24 @ 14:01 by Ben Gr DO) Elevated troponin I level (Acute) Constipation Tobacco use DVT (deep venous thrombosis) (Acute) SAWYER (acute kidney injury) (Acute) Acute hypotension (Acute) Hypoxia (Acute) Chest pain (Acute) Pulmonary embolism (Acute) Bilateral pulmonary embolism (Acute) COPD (chronic obstructive pulmonary disease) Pulmonary embolism 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 CABG x2 in 2013 (CHAUDHRY-LAD, SVG-OM) at [facility] GERD (gastroesophageal reflux disease) (Chronic) Medical History Barretts esophagus Osteoarthritis knees, hips, shoulders Degenerative disc disease Nausea reason for EGD Myocardial Infarction 2013--follows with Dr. Roe Lumbar stenosis Surgical History History of throat surgery [facility] [place], [place] removal lesions in throat History of esophagogastroduodenoscopy (EGD) (~05/15/20) History of hand surgery right hand, pointer/middle/ring finger all repaired (table saw accident) no hardware History of lumbar surgery remove arthritis after discectomy History of lumbar discectomy History of tooth extraction History of wisdom tooth extraction History of heart artery stent 2007 @ [facility] History of cardiac cath 2007 @ [facility] with 1 stent History of coronary artery bypass graft x 2 2013 @ [facility] [place] Hx of CABG Family History Mother Family history of esophageal cancer Other No family history of adverse response to anesthesia Social History Smoking Status: Current every day smoker Tobacco Type: Cigarettes Cigarettes Per Day: 5; Second Hand Exposure: No; Do You Dip or Chew Tobacco: No; Tobacco Cessation Education Requested by Patient: No Hx Alcohol Use: Yes Alcohol type: hard liquor Hx Substance Use: No Preferred Language: Bengali Communication Ability: Effective 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 Beliefs That Will Affect Care: None Current Living Situation: Spouse Other Information That Helps Us Care for You: No Feels Safe at Home: Yes Safety Concerns: Feels Safe At This Time Assistive Devices: Glasses Review of Systems Review of Systems: See HPI above Physical Exam Physical Exam: General: no acute distress; non-toxic appearing; cooperative; SpO2 100% on 2 LNC HEENT: normocephalic, atraumatic; no scleral icterus; PERRLA; vision and hearing grossly intact Neck: supple; no lymphadenopathy; trachea midline Skin: warm, dry without signs of tenting; no cyanosis; no rashes, bruising, lesions, or erythema noted CV: chest wall NTP; RRR; S1/S2 normal; no murmurs/rubs/gallops; pulses intact and symmetric at radial, DP, and PT Lungs: Mild respiratory distress; conversational dyspnea; symmetrical chest wall expansion; clear breath sounds across all lung tyson w/o adventitious sounds; no wheezing ABD: Soft, NTP; distention secondary to midline supraumbilical hernia; superficial erythematous rash extending from the right side of the body, without vesicles; BS present; no rebound/guarding; no distention MSK: no tics or fasciculations; no edema noted in the LEs b/l, nonerythematous Back: Upper and lower spine is NTP Neuro: A&Ox3; normal mood and affect; fluent speech; no focal deficits; sensation grossly intact in the LEs b/l Results & Data Results & Data Vital Signs (Past 12 Hours) Vital Signs Temp Pulse Resp BP Pulse Ox O2 Del Method O2 Flow Rate 06/22/24 09:15 119/59 L 06/22/24 09:09 56 L 20 100 06/22/24 09:03 55 L 17 100 06/22/24 09:00 113/62 08/01/24 09:00 58 L 18 99 06/22/24 08:58 72 06/22/24 08:51 57 L 19 100 06/22/24 08:45 120/59 L 06/22/24 08:42 56 L 22 98 Nasal Cannula 2 06/22/24 08:39 59 L 20 100 Nasal Cannula 2 06/22/24 08:39 66 24 97 Nasal Cannula 2 06/22/24 08:36 124/60 06/22/24 08:36 60 22 94 Nasal Cannula 2 06/22/24 08:20 86 L Room Air 06/22/24 08:20 Room Air 06/22/24 08:17 36 C L 115 H 18 84/51 L 94 Room Air Laboratory Results Abnormal lab results 06/22/24 06/22/24 Range/Units 08:30 09:25 RBC 4.28 L (4.70-6.10) M/uL Hgb 13.8 L (14.0-18.0) g/dl Hct 40.3 L (42.0-52.0) % D-Dimer 4350 H* (0-500) ug/L FEU VBG pH 7.32 L (7.36-7.41) Creatinine 1.72 H (0.6-1.4) mg/dl Troponin I High Sens 65.1 H* (0-20) pg/ml Diagnostic Findings Chest X-Ray 06/22/24 08:39 XR chest 1V portable HISTORY: Sepsis COMPARISON: Chest 07/21/2023. FINDINGS: No pneumothorax. No pleural effusions. The lungs are clear. The heart is normal in size. Poststernotomy changes are noted. Degenerative changes within the shoulders. Old left-sided rib fractures. IMPRESSION: No acute process. ACT 112: Negative or not required by law. Electronically signed by: Zackary Hollis M.D. 06/22/2024 9:20 AM ECG Additional Comments: EKG revealed NSR at 63 bpm; QTc 409 Code Status & VTE Plan Code Status DNR/DNI VTE Prophylaxis Plan VTE Prophylaxis will be ordered: Yes Supervising Physician Co-Signing Physician Notes Patient seen and examined, chart reviewed, case discussed with Zackary Macdonald PA-C and I agree with the assessment and plan as above except as otherwise noted Labs and images reviewed Max is a 74-year-old male with a past medical history of CABG, hypertension, hyperlipidemia, past DVT/PE presents with shortness of breath over several weeks with chronic progression but no acute change. Patient was recommended for indefinite anticoagulation after his last PE, however several months ago did have issues with spontaneous bruising in his left arm and stopped dose reduced Eliquis. Over the last several weeks he has had progressive shortness of breath. No sudden acute change but has chronically become more dyspneic especially on exertion. Also has a history of a abdominal hernia and some constipation, has been eating and drinking less lately and has been very dehydrated. convinced him to come to the ER today. On initial ER ev aluation he was volume contracted, hypotensive and received 1500 cc of saline. BP subsequently normalized and 130s systolic at time of hospitalist assessment. CTA shows right-sided pulmonary emboli without evidence of heart strain, emphysema is noted. There is no saddle PE seen on CT. Heparin started in the ER, thrombolysis was not recommended as patient was normotensive on reevaluation. Abdominal CT re-demonstrates his supraumbilical hernia without evidence of obstruction, and shows near occlusive DVT in the left common femoral and superficial femoral veins. Patient has not been on anticoagulation in the preceding months. Does have extensive left common femoral/superficial femoral DVT. No cerulea dolens on exam. CTAB, RRR intermittently bradycardic with chronotropic response when m oving in bed. PT pulses are intact. No lower extremity edema. No clinical evidence of acute vascular requiring catheter directed thrombolysis/thrombectomy; however given large proximal clot and increased risk will place on neurovascular checks overnight. Right-sided PEs are present. Patient has multiple risk factors including prior DVT/PE and tobacco use. No known history of cancer, and no evidence of lung cancer on CTA although does have an extensive greater than [id number] history of tobacco use and ongoing 1 pack/week tobacco use. Follows with GI with history of Lopez's esophagus, denies history of malignancy. Patient was volume contracted and had 1 hypotensive measurement on ER on arrival to the ER, however following initial fluid bolus and before heparin blood pressure normalized on recheck and is 130s systolic in the room. No presyncope/syncope. He is on 2 L of nasal cannula, is not tachycardic. Troponin was with an elevation of 65 downtrending at 52. Continue on heparin gtt with neurovascular checks of the left lower extremity as above. Echo pending, and absence of dilated RV suspect initial hypotension was more reflective of volume contraction w/ PE rather than massive hemodyanmically significant PE. +R abdominal erythematous rash in a dermatomal distrubution wrapping around to the back. No vesicles are present. Rash is not itchy or tender. Patient has had shingles vaccination and booster. This rash is been present for approximately 1 week. He is not symptomatic with this, and is outside of the 72-hour window for acyclovir. Appearance is highly suspicious for shingles will place on contact precautions. Agree with above PG Care Time/CCT Total # of Minutes Spent Total Time Spent with Patient: Total time spent is greater than 50% in coordination of care (as documented) at patient's floor/unit and/or counseling patient: Coding [place] [address] INT INP/OBS CARE 3/75MIN Patient Type Established Medical Decision Making High Complexity Diagnoses Pulmonary embolism I26.99 Acute cor pulmonale presence: unspecified Chronicity: acute Pulmonary embolism type: unspecified DVT (deep venous thrombosis) I82.412 Affected thrombotic vein of extremity: femoral Chronicity: acute DVT location: lower extremity Laterality: left Lopez's esophagus with high grade dysplasia K22.711 Tobacco use Z72.0 SAWYER (acute kidney injury) N17.9 CAD (coronary artery disease) I25.10 Constipation K59.00 Dyslipidemia E78.5 Hypertension I10 (1) Pulmonary embolism Acute cor pulmonale presence: unspecified Chronicity: acute Pulmonary embolism type: unspecified Qualified Code(s): I26.99 - Other pulmonary embolism without acute cor pulmonale (2) DVT (deep venous thrombosis) Affected thrombotic vein of extremity: femoral Chronicity: acute DVT location: lower extremity Laterality: left Qualified Code(s): I82.412 - Acute embolism and thrombosis of left femoral vein
--- NOTE | 2024-06-22 11:01 | CT Scan Report ---
CT angio chest PE protocol CT DOSE: 1945.17 mGy.cm HISTORY: 74 years-old Male with PE. Acute shortness of breath TECHNIQUE: Multiple CTA images of the chest were obtained after the intravenous administration of 112 ml Optiray. Coronal and sagittal MIPS were obtained from the axial data set and were submitted for review. All measurements were obtained according to NASCET criteria. A dose lowering technique was u tilized adhering to the principles of ALARA. COMPARISON: CT abdomen and pelvis of same day, CTA chest 07/21/2023 FINDINGS: CTA: Heart is upper limits of normal in size without pericardial effusion. Sternotomy with prior CABG. Mod erate coronary artery calcifications. No thoracic aortic aneurysm. Descending thoracic aortic tortuos ity. Prominent calcified plaque in the proximal superior mesenteric artery causes high-grade stenosis . Lobar, segmental and subsegmental pulmonary emboli noted within the right lung. No evidence of righ t heart strain. CT CHEST: Unremarkable thyroid. There is no lymphadenopathy. Moderate pulmonary emphysema. No pneumothorax or p leural effusion. Bronchial wall thickening suggestive of bronchitis. No suspicious pulmonary nodules or masses. No acute upper abdominal abnormality. Exophytic probable cyst of the superior pole right kidney, 1.7 cm. No acute fracture. Degenerative changes of the shoulders and spine. The osseous structures appear intact. IMPRESSION: 1. Right-sided pulmonary emboli without evidence of right heart strain, pleural effusion or airspace consolidation. 2. Emphysema with probable bronchitis. ACT 112: Negative or not required by law. The above report was generated using voice recognition software. It may contain grammatical, syntax o r spelling errors. Electronically signed by: Kt Galloway M.D. 06/22/2024 11:00 AM
--- NOTE | 2024-06-22 11:01 | CT Scan Report ---
ABDOMEN AND PELVIS CT WITH IV CONTRAST CT DOSE: HISTORY: Upper abdominal pain. TECHNIQUE: Multiaxial CT images of the abdomen and pelvis were performed following the use of intrave nous contrast. A dose lowering technique was utilized adhering to the principles of ALARA. COMPARISON STUDY: Abdomen and pelvis CT 03/21/2020. FINDINGS: The lung bases will be reported on the same day chest CTA. Emphysema is again noted. No pne umoperitoneum. No pneumatosis. There is an old anterior wedge-shaped compression deformity at T11. Po sterior decompression within the lower lumbar spine. Old right-sided rib fractures. There is a large midline supraumbilical hernia containing multiple loops of small bowel. Mild fat stranding noted at t he hernia neck. This is likely due to the chronic hernia. This is similar to the prior study. The her mara sac measures 11.8 cm. This has slightly increased in size in the interval. There is a near occlus rina left common femoral and left superficial femoral deep vein thrombosis. The bilateral superficial femoral arteries are occluded which is likely chronic. The liver, gallbladder, pancreas, spleen, and adrenal glands are unremarkable. No hydronephrosis. There is a 16 mm exophytic hypodense lesion withi n the right kidney. This previous measured 3.2 cm. Therefore, this favors a hyperdense cyst. Addition al right renal hypodense lesions also favor cysts. The main portal vein is patent. There is an ectati c abdominal aorta measuring up to 2.6 cm in diameter. Moderate calcified plaque within the aorta and iliac arteries. Mild bladder wall thickening is likely due to chronic outlet obstruction from the enl arged prostate gland. No bowel wall thickening or obstruction. A few colonic diverticula. No evidence for acute diverticulitis. Normal appendix. IMPRESSION: 1. Slight increase in size in the large midline supraumbilical hernia containing multiple loops of sm all bowel. No evidence for bowel obstruction. 2. Near occlusive deep vein thrombosis within the left common femoral and superficial femoral veins. 3. Colonic diverticulosis. No evidence for acute diverticulitis. 4. Additional findings as described above. ACT 112: Negative or not required by law. Electronically signed by: Zackary Hollis M.D. 06/22/2024 10:59 AM
[2024-06-22] MEDS: HEPARIN SODIUM/DEXTROSE 25,000 UNITS/500 ML BAG IV SCH (11:33)
[2024-06-22] MEDS: HEPARIN SOD (PORCINE) 1000 UNIT/ML IV ONE (11:33)
[2024-06-22] MEDS: POLYETHYLENE (MIRALAX) 17 GM PACK PO ONE (12:30)
[2024-06-22] MEDS: PLASMA-LYTE A 1,000 ML IV SCH (12:31)
[2024-06-22] MEDS ORDERED: ACETAMINOPHEN 325 MG TAB PO PRN (15:03)
[2024-06-22] MEDS ORDERED: ONDANSETRON INJ 2 MG/ML 2 ML VIAL IV PRN (15:03)
[2024-06-22 15:38] LABS: Appearance Urine Clear (Clear); Bacteria Urine Automated None Seen (None Seen); Bilirubin Urine Negative (Negative); Blood Urine 2+ (Negative); Color Urine Yellow; Epithelial Cell Urine Auto 0-2 /hpf (0-2); Glucose Urine UA Negative (Negative); Ketones Urine Trace (Negative); Leukocyte Esterase Urine Negative (Negative); Nitrite Urine Negative (Negative); Protein Urine 2+ (Negative); RBC Urine Automated 0-2 /hpf (0-2); Specific Gravity Urine > 1.045 (1.000-1.030); Urobilinogen Urine Negative (Negative); WBC Urine Automated 0-5 /hpf (0-5); pH Urine 5.5 (4.5-7.5)
--- NOTE | 2024-06-22 16:08 | XCELERA ---
[id number] \\[email or web address]\[id number]
[2024-06-22 18:34] LABS: ANTI-Xa, UFH(UnfractionatedHep > 1.50 IU/ml (0.3-0.7)
[2024-06-22] MEDS: METOPROLOL SUCC 50MG EXT REL TAB PO SCH (21:26)
[2024-06-22] MEDS: FAMOTIDINE 40 MG TABLET PO SCH (21:26)
[2024-06-22] MEDS ORDERED: MELATONIN 3 MG TAB PO PRN (21:47)
[2024-06-22 23:44] LABS: ANTI-Xa, UFH(UnfractionatedHep 0.44 IU/ml (0.3-0.7)
[2024-06-23 07:04] LABS: Basophils # (auto) 0.02 K/uL (0.00-0.20); Basophils % (auto) 0.4 %; Eosinophils # (auto) 0.13 K/uL (0.00-0.50); Eosinophils % (auto) 2.7 %; Hematocrit (blood only) 32.3 % (42.0-52.0); Hemoglobin 11.1 g/dl (14.0-18.0); Immature Granulocytes # (auto) 0.01 K/uL (0.01-0.20); Immature Granulocytes % (auto) 0.2 %; Lymphocytes # (auto) 1.91 K/uL (1.20-3.40); Mean Corpuscular Hemoglobin 32.6 pg (25.0-34.0); Mean Corpuscular Hgb Conc 34.4 g/dL (32.0-36.0); Mean Corpuscular Volume 94.7 fL (80.0-100.0); Mean Platelet Volume 10.6 fL (9.4-12.4); Monocytes # (auto) 0.42 K/uL (0.11-0.59); Monocytes % (auto) 8.6 %; Neutrophils # (auto) 2.41 K/uL (1.40-6.50); Neutrophils % (auto) 49.1 %; Platelet Count 193 K/uL (130-400); RDW Coefficient of Variation 12.5 % (11.5-14.5); RDW Standard Deviation 43.7 fL (36.4-46.3); Red Blood Count 3.41 M/uL (4.70-6.10)
[2024-06-23 07:22] LABS: BUN Creatinine Ratio 10.6 (10-20); Calcium 8.8 mg/dl (8.6-10.3); Creatinine Clr Calc Pharmacy 44.2 ml/min; Est GFR (Non-African American) 48.3 ml/min; Potassium 3.4 mmol/L (3.5-5.1)
[2024-06-23 07:59] LABS: INR 1.1 (0.9-1.1); Partial Thromboplastin Ratio 1.8; Partial Thromboplastin Time 49 Seconds (21-31); Prothrombin Time 11.9 Seconds (9.0-12.0)
[2024-06-23] MEDS: ROSUVASTATIN CALCIUM 20 MG TAB PO SCH (08:02)
[2024-06-23] MEDS: ASPIRIN 81 MG ECTAB PO SCH (08:03)
[2024-06-23] MEDS: lisinopril 40 MG TAB PO SCH (08:03)
[2024-06-23] MEDS: PANTOprazole 40 MG TAB PO SCH (08:03)
[2024-06-23] MEDS: POLYETHYLENE (MIRALAX) 17 GM PACK PO SCH (08:05)
[2024-06-23] MEDS: POTASSIUM CHLORIDE CRTAB 20 MEQ TABCR PO ONE (09:30)
--- NOTE | 2024-06-23 10:58 | Discharge Summary ---
Discharge Summary Date of Service June 23, 2024 Principal Dx & Hospital Course #1 = Principal Diagnosis (1) Pulmonary embolism: Right-sided. Most likely causes from the left leg DVT. Heparin drip has been switched to Eliquis. He passed his two-step oxygen evaluation this morning. He is currently asymptomatic. Cardiac echo reveals mild left ventricular hypertrophy with normal ejection fraction and no regional wall motion abnormalities. There is no right ventricular enlargement or evidence of right ventricular pressure overload. Moderate left atrial enlargement noted. (2) DVT (deep venous thrombosis): Left lower extremity. He is now on Eliquis. (3) Lopez's esophagus with high grade dysplasia: Stable. Continue dexlansoprazole and famotidine (4) Tobacco use: Smoking cessation recommended. (5) SAWYER (acute kidney injury): Mildly elevated on admission. Resolved with IV fluids. (6) CAD (coronary artery disease): PCI RCA in 2007, CABG x 2 in 2013. Stable. Continue current medical management (7) Hypertension: Stable. Continue current medical management Plan Home today, June 23, on Eliquis therapy. Admission HPI Per Admitting Provider León is a 74-year-old male with PMH of CAD, GERD, dyslipidemia, HTN, pulmonary embolism (on Eliquis), and COPD. He presented on 06/22 for worsening cough x 4 to 5 months months, and worsening SOB at rest. Patient reports that SOB is both at rest and with exertion, and patient's in the room reports he has been "wheezing" when sleeping. SOB is not worse when he lies flat on his back. He denies pleuritic chest pain, but does report that this can exacerbate his coughing when he takes deep breaths. Patient does have history of a pulmonary embolism that occurred a year and a half ago in November 2022. Patient is unsure what caused it, but believed he injured his foot, which led to a DVT/blood clot. Patient was previously on Eliquis, but stopped taking it 4 to 5 months ago after he developed bruising on his arms without injury/trauma to the arms. Patient endorses productive cough (clear, but slightly cloudy at times); no hemoptysis. He is a current everyday tobacco cigarette smoker; 1 pack/week. 62-year smoking history and was previously on 1 PPD. He denies recent alcohol use, but does endorse daily alcohol use that he stopped 3 to 4 weeks ago; but drinks 2-3 white Russians per day. Patient denies cigars, and chewing tobacco. No sick contacts. No supplemental oxygen at home. No CPAP at night. No recent injuries to the chest wall or legs. Additional PMH: patient has been screened in the past for esophageal/stomach cancer and is due for another endoscopy; he recently reports that he has had a loss of appetite and has not been eating as well. Patient is mildly bradycardic at 47 bpm admission; BP 119/62; SpO2 100% on 2 LNC. ED Course: Heparin IV w/ bolus NSS 1500mL Albuterol 3mL ROS: Patient endorses fatigue, generalized weakness, SOB at rest and with exertion, productive cough (clear), and loss of appetite. Patient denies fever, chills, night-sweats, dizziness, lightheadedness, ALBERTO, chest pain, pleuritic CP, hemoptysis, abdominal pain, N/V/D, or recent injuries/swelling/erythema in the legs. Discharge Exam General-alert and oriented x3, no fever, no chills HEENT-head atraumatic and normocephalic, pupils equal and reactive to light, extraocular muscles intact Neck-no lymphadenopathy or thyromegaly, trachea midline Chest-clear to auscultation. No rales, wheezing or rhonchi Cardiac-regular rate and rhythm, normal S1 and S2 Abdomen-normal bowel sounds, no hepatosplenomegaly Extremities-no cyanosis, clubbing, or edema Neuro-cranial nerves II through XII intact, motor and sensory function within normal limits, strength symmetrical, no focal deficits Psych-normal affect, normal mood Updated Medication List Medication Instructions Recorded Confirmed Type aspirin 81 mg tablet,delayed 81 mg PO QAM 05/08/20 06/22/24 History release rosuvastatin 40 mg tablet 40 mg PO DAILY #90 tabs 06/17/23 06/22/24 Rx famotidine 40 mg tablet 40 mg PO BID #180 tabs 12/16/23 06/22/24 Rx dexlansoprazole 60 mg 60 mg PO DAILY #90 caps 02/14/24 06/22/24 Rx capsule,biphase delayed release lisinopril 40 mg tablet 40 mg PO QAM #90 tabs 06/23/24 Rx metoprolol succinate 50 mg 50 mg PO BID #180 tabs 06/23/24 Rx tablet,extended release 24 hr (Toprol XL) Hospital Stay Data Consultations 06/22/24 10:23 ED Decision to Admit Stat Diagnostic Imagining Performed 06/22/24 09:24 CT abd pelvis IV con only Stat CT angio chest PE protocol Stat Total Time Total Time Spent Total Time Spent (In Minutes): 45 minutes Coding Level of Care Code 84349 INP/OBS DISCH >30 MIN Diagnoses Pulmonary embolism I26.99 Acute cor pulmonale presence: unspecified Chronicity: acute Pulmonary embolism type: unspecified DVT (deep venous thrombosis) I82.412 Affected thrombotic vein of extremity: femoral Chronicity: acute DVT location: lower extremity Laterality: left Lopez's esophagus with high grade dysplasia K22.711 Tobacco use Z72.0 SAWYER (acute kidney injury) N17.9 CAD (coronary artery disease) I25.10 Hypertension I10
[2024-06-23] MEDS: APIXABAN 5 MG TABLET PO SCH (13:03)
--- NOTE | 2024-06-23 20:51 | Electrocardiogram Report ---
Test Reason : Blood Pressure : / mmHG Vent. Rate : 063 BPM Atrial Rate : 063 BPM P-R Int : 146 ms QRS Dur : 084 ms QT Int : 400 ms P-R-T Axes : 066 048 -21 degrees QTc Int : 409 ms Normal sinus rhythm Possible Inferior infarct , age undetermined Nonspecific ST and T wave abnormality Abnormal ECG When compared with ECG of 21-JUL-2023 10:48, Nonspecific T wave abnormality now evident in Lateral leads Confirmed by Duke Bowers ([id number]) on 06/23/2024 8:50:48 PM Referred By: REFERRED SELF Confirmed By:Duke Bowers
== END 2024-06-23 13:50 | disposition home or self-care (01) | DRG 299 ==
LOC: ED 08:14 → EDINP 11:28 → SUATTDRO 11:28 → 2S 16:07